=== PATIENT | male | born 1970 | race Caucasian/White ===

== ENCOUNTER → 2017-06-27 | Outpatient (CLI) | payer BC, SELFPAY | PROVIDERS: Family Provider Family Medicine; Visit Provider Family Medicine | DX: R10.13 Epigastric pain (principal) | CPT/HCPCS: 74247 ==

== ENCOUNTER → 2019-11-06 10:46 | Outpatient (CLI) | payer BC, SELFPAY ==
--- NOTE | 2019-11-06 10:55 | XR_ITS ---
PROCEDURE: XR LUMBAR SPINE MIN 4V CLINICAL INDICATION: LUMBAGO W/ LT SCIATICA Low back pain COMPARISON: No exams were available for comparison FINDINGS: Normal alignment. No acute fracture or dislocation evident. There is degenerative disc disease from L1-S1 most prominent at L3-S1. There are facet arthritic changes at L5-S1. A small area of hyperostosis is noted along the dorsal aspect of the mid to lower sacrum. There is minimal lumbar curvature convex right. There is mild sclerosis of the left SI joint superiorly IMPRESSION: Multilevel lumbar spondylosis as described above Dictated by: Nando Yung MD 11/06/2019 11:18 Electronically signed by Nando Yung MD in [place] 11/06/2019 11:18
== END ==
PROVIDERS: PCP Family Medicine; Visit Provider Family Medicine
DX: M54.42 Lumbago with sciatica, left side (principal)
CPT/HCPCS: 72110

== ENCOUNTER → 2019-12-02 07:45 | Outpatient (CLI) | payer BC, SELFPAY ==
--- NOTE | 2019-12-02 07:53 | MR_ITS ---
PROCEDURE: MR LUMBAR SPINE WO CON CLINICAL INDICATION: LUMBAGO WITH SCIATICA, DDD Low back pain, left leg pain tingling and numbness COMPARISON: XR LUMBAR SPINE MIN 4V from 11/06/2019 TECHNIQUE: Standard multiplanar multiecho sequences are performed without contrast. 3-D MIP and myelographic images are also rendered and reviewed FINDINGS: There is normal alignment. The spinal cord ends at the T12-L1 level. L1-L2: There is a small broad-based foraminal disc protrusion resulting in mild to moderate left-sided foraminal narrowing L2-L3: Mild disc desiccation with concentric bulging disc with both right and left broad-based foraminal disc protrusions/disc osteophyte complexes with mild to moderate bilateral foraminal narrowing. There is facet and ligamentum hypertrophy with bilateral lateral recess narrowing. L3-L4: Degenerative disc disease with bulging disc with facet ligamentum hypertrophy with moderate bilateral lateral recess narrowing and moderate bilateral foraminal narrowing. L4-5: Degenerative disc disease. There is bulging disc with a small left paracentral disc herniation with inferior extrusion with resultant severe left lateral recess narrowing. This is impinging upon the left L5 nerve root. There is moderate bilateral foraminal narrowing from the facet and ligamentum hypertrophy and bulging disc. The extruded portion of the disc extends inferiorly for approximately 7 mm. L5-S1: Degenerative disc disease with bulging disc along with facet and ligamentum hypertrophy with mild bilateral foraminal narrowing. Incidental note is made of a small right renal cyst at 11 mm. IMPRESSION: 1. Mild multilevel lumbar spondylosis with degenerative disc disease, bulging discs with lateral recess and foraminal narrowing. Please see above for detailed description at each level. 2. L1-L2: There is a small broad-based foraminal disc protrusion resulting in mild to moderate left-sided foraminal narrowing 3. L2-L3: Mild disc desiccation with concentric bulging disc with both right and left broad-based foraminal disc protrusions/disc osteophyte complexes with mild to moderate bilateral foraminal narrowing. There is facet and ligamentum hypertrophy with bilateral lateral recess narrowing. 4. L3-L4: Degenerative disc disease with bulging disc with facet ligamentum hypertrophy with moderate bilateral lateral recess narrowing and moderate bilateral foraminal narrowing. 5. L4-5: Degenerative disc disease. There is bulging disc with a small left paracentral disc herniation with inferior extrusion with resultant severe left lateral recess narrowing. This is impinging upon the left L5 nerve root. There is moderate bilateral foraminal narrowing from the facet and ligamentum hypertrophy and bulging disc. The extruded portion of the disc extends inferiorly for approximately 7 mm. Dictated by: Nando Yung MD 12/04/2019 08:23 Electronically signed by Nando Yung MD in [place] 12/04/2019 08:23
== END ==
PROVIDERS: PCP Family Medicine; Visit Provider Family Medicine
DX: M54.42 Lumbago with sciatica, left side (principal); M51.36 Other intervertebral disc degeneration, lumbar region; M47.816 Spondylosis without myelopathy or radiculopathy, lumbar region
CPT/HCPCS: 72148; 76376

== ENCOUNTER → 2021-01-16 08:28 | Outpatient (CLI) | payer BC, SELFPAY ==
[2021-01-16 08:51] LABS: Chloride 106 mmol/L (98-107); Potassium 4.6 mmoL/L (3.5-5.1); Sodium 142 mmol/L (136-145)
[2021-01-16 08:54] LABS: Alanine Aminotransferase 21 U/L (12-78); Albumin Level 4.4 g/dl (3.5-5.0); Albumin/Globulin Ratio 1.5 (1.1-1.8); Alkaline Phosphatase 90 U/L (38-126); Anion Gap 11.6 mEq/L (5-15); Aspartate Amino Transferase 22 U/L (17-59); Bilirubin,Total 0.4 mg/dl (0.2-1.3); Blood Urea Nitrogen 18 mg/dl (9-20); Calcium 8.9 mg/dl (8.4-10.2); Carbon Dioxide 29 mmol/L (22.0-30.0); Chol/HDL Ratio 4.5 (1-3.5); Cholesterol 171 mg/dl (140-200); Estimated Glomerular Filt Rate 89 ml/min (>60); GFR (African American) 108 ML/MIN (>60); Globulin 2.9 g/dL (1.3-3.2); Glucose 109 mg/dl (74-100); HDL Cholesterol 38 mg/dl (40-60); Total Protein,Serum 7.3 g/dl (6.3-8.2); Triglycerides 64 mg/dl (30-150); VLDL Cholesterol 13 mg/dL (0-40)
[2021-01-16 09:06] LABS: Direct LDL Cholesterol 97.83 mg/dL (100-129)
[2021-01-16 09:46] LABS: Prostate Specific Ag, Diagnost 0.743 ng/ml (0.0-4.0)
== END ==
PROVIDERS: Visit Provider Physician Assistant
DX: K21.9 Gastro-esophageal reflux disease without esophagitis (principal); Z13.220 Encounter for screening for lipoid disorders; Z12.5 Encounter for screening for malignant neoplasm of prostate
CPT/HCPCS: 36415; 80053; 80061; 84153

== ENCOUNTER → 2021-02-08 14:22 | Outpatient (CLI) | payer BC, SELFPAY | PROVIDERS: Visit Provider Internal Medicine Gastroenterology | DX: Z01.812 Encounter for preprocedural laboratory examination (principal); Z11.52 Encounter for screening for COVID-19; Z12.11 Encounter for screening for malignant neoplasm of colon | CPT/HCPCS: U0003 ==

== ENCOUNTER 2021-02-17 12:18 | Emergency (ER) | payer BC, SELFPAY ==
[2021-02-17 13:10] VITALS: BP 144/80; PULSE 60; RESP 20; TEMP 37.1; O2SAT 96; BMI 33.5
[2021-02-17 13:27] VITALS: BP 144/80; PULSE 60; RESP 20; TEMP 37.1; O2SAT 96
--- NOTE | 2021-02-17 13:30 | HMH.EDUTC ---
[facility] [place] Impression: Exposure to COVID-19 virus Disposition: Home, Self-Care Condition on Discharge: Good Instructions: Guaifenesin, DI for COVID-19 (Suspected or Confirmed ), Preventing the Spread of Coronavirus Discharge Instructions Additional Instructions: *Monitor Temp, Over the counter Motrin or Tylenol as directed/as needed Tylenol every 4 hours and Motrin every 6 hours (as long as your family doctor has told you that you can take it) for fever or pain. and straight to ER if unable to lower temp less than 101.0 after medication given *Warm salt water gargles may help to soothe the throat *Throat Lozenges *Warm fluids like tea with honey may help to soothe the throat *Sleep elevated *Humidifier/Vaporizer Follow up IMMEDIATELY for new or worsening symptoms or no Noticeable improvement over the next 48-72 hours. 911 for difficulty breathing or swallowing You were tested for today for COVID19 your test result should be back in the next 24-48 hours, you may call to the [facility] to see if your test results are back in the next 48 hours [phone] [facility] hours are 9am-9pm You was given a handout with instructions for Self Quarantine and Self isolation for while you wait on test results and what to do if they are positive If you are positive the Health Dept will be contacting you also Make sure to take your Vitamins Vit. C Vit D and Zinc if you can take them Prescriptions: guaiFENesin [Mucinex 600mg tablet] 1 - 2 tab PO Q12HP PRN #20 tab.er.12h PRN Reason: Congestion Transmission Status: Pending to [facility] Referrals: Arvind Caputo MD [Primary Care Provider] - As needed Time of Disposition: 13:33 Medical Decision Making - [place] Inquiry Pt receiving controlled substance: No [place] was queried for this patient: No Vital Signs: 02/17/21 13:10 02/17/21 13:27 Temperature 98.8 F 98.8 F Temperature Source Oral Pulse Rate 60 Pulse Rate [Right Brachial] 60 Respiratory Rate 20 20 Blood Pressure 144/80 H Blood Pressure [Right Arm] 144/80 H Blood Pressure Mean [Right Arm] 101 Blood Pressure Source [Right Arm] Automatic Cuff Blood Pressure Position [Right Arm] Sitting 02 Sat by Pulse Oximetry 96 Oxygen Delivery Method Room Air [facility] [place] - General Stated complaint: covid test Time Seen by Provider: 02/17/21 13:30 Mode of Arrival: Ambulatory Source of Information: Patient Limitations: No Limitations Description of Symptoms (Recalled from Triage Doc. by RN): PATIENT C/O CONGESTION, HEADACHE AND COUGH. RECENTLY EXPOSED TO COVID HEENT Symptoms (Recalled from RN notes): Yes Resp Symptoms (Recalled from RN notes): No Skin Symptoms (Recalled from RN notes): No MS Symptoms (Recalled from RN notes): No Functional Status (Recalled from RN notes): WNL - History of Present Illness Provider Complaint: Patient state that he was recently around his daughter and son in law that have since tested positive for COVID and he has a meeting on Saturday and when he started having cough and nasal congestion he wanted to come in and get tested - Related Data Home Medications Medication Instructions Recorded Confirmed Omeprazole 40 mg PO DAILY 02/07/21 buPROPion HCL [Bupropion Xl] 150 mg PO DAILY 02/07/21 Previous Rx's Medication Instructions Recorded guaiFENesin [Mucinex 600mg tablet] 1 - 2 tab PO Q12HP PRN #20 02/17/21 tab.er.12h Allergies Allergy/AdvReac Type Severity Reaction Status Date / Time No Known Allergies Allergy Verified 08/16/18 09:17 - Worker's Comp Is this a Worker's Comp case?: No [facility] History - Hepatitis A Screen Drug use history?: No High risk sexual behaviors?: No History of sexually transmitted infection?: No Currently employed?: No Childcare worker?: No Do you have indoor plumbing?: Yes Do you have electricity?: Yes Attestation statement:: This patient has been screened for Hepatitis A risk factors. I have reviewed the patient'
--- NOTE | 2021-02-17 19:19 | PC.NURSE ---
PATIENT NOTIFIED OF POSITIVE COVID TEST AT THIS TIME
== END 2021-02-17 13:37 | disposition home or self-care (01) ==
PROVIDERS: Emergency Provider Nurse Practitioner; PCP Family Medicine
DX: U07.1 COVID-19 (principal)
CPT/HCPCS: 99202; G0463; U0003

== ENCOUNTER 2021-03-27 12:09 | Day surgery (SDC) | payer BC, SELFPAY ==
[2021-03-22 14:06] VITALS: BMI 33.0
[2021-03-27 12:49] VITALS: BP 119/59; PULSE 63; RESP 18; TEMP 36.7; O2SAT 97
--- NOTE | 2021-03-27 13:14 | P.PN_ITS ---
[facility] Anesthesia Checklist - Patient Identification Patient Identification: Arm Band - Structural Data Admitted From: Home Planned Operative Procedure/s: Colonoscopy Consent for Planned Operative Procedure(s) Verified: Yes - NPO Status Verified Time NPO: 00:00 - Airway Assessment C-Spine Mobility Assessed: Yes TMJ Mobility Assessed: Yes Dentition: Dentures-good fit - Neurological Assessment Level of Consciousness: Awake Hx Seizures: No Numbness or tingling in extremities: No - Anesthesia Plan Anesthesia Risk discussed: Yes Anesthesia Plan: Verified ASA Class: II Anesthesia Type: MAC [facility] History I have reviewed the patient's past medical history: Yes Medical History: Denies:: Cancer, Diabetes Mellitus Type 1, Diabetes Mellitus Type 2, Internal Pacemaker, MRSA, Seizures *Have you ever received a pneumonia vaccine?: No *Have you received a flu vaccine this season?: No Anesthesia experience/problems:: None Laterality Cases: Bilateral: Arthroscopy Knee Other Surgeries: No: Pacemaker Amputation: No Fractures: No - *Social History Last grade of school completed: Some college Smoking Status: Never smoker Alcohol Intake: current Alcohol Intake Frequency:: holidays/special occasions only Substance Use Type: denies use *Occupational Status:: employed Housing: house Household Members: spouse *Travel in the last 8 weeks: None Family Hx:: Heart Attack, Stroke
[2021-03-27 14:06] VITALS: O2SAT 97
--- NOTE | 2021-03-27 14:07 | P.PCN_ITS ---
[facility] Procedure Note Procedure Note:: Colonoscopy Procedure Report: Colonoscopy with cold snare polypectomy Endoscopist: Rebel Palmer II, MD Referring physician: Arvind Caputo MD/JAVIER Johnson Date of Procedure: March 27, 2021 Equipment: Olympus 190 variable stiffness pediatric colonoscope Sedation: MAC sedation Indication: Mr. Sullivan is a 50-year-old gentleman who is here for initial screening colonoscopy. He reports no abdominal pain, weight loss, change in his bowel habits or rectal bleeding. He reports no family history of colon cancer. Procedure: Prior to the procedure, a history and physical exam was performed, and patient's medications and allergies were reviewed. The risks, benefits and alternatives of the sedation and procedure were discussed with the patient. All questions were answered and informed consent was obtained. The patient was brought to the procedure room. Patient identification and proposed procedure were verified by the physician and the nurse. The patient was placed in a left lateral decubitus position and the scope was passed under direct vision. Throughout the procedure, the patient's blood pressure, pulse, and oxygen saturations were monitored continuously. The colonoscopy was accomplished without difficulty. The patient tolerated the procedure well. Findings: On digital rectal examination there was normal rectal tone. There were no external hemorrhoids. The prostate was 2+, smooth, soft, symmetric without nodules. The colonoscope was introduced through the anal canal to the rectum and advanced to the cecum. The ileocecal valve and appendiceal orifice were identified. The scope was advanced a short distance into the ileum which appeared grossly normal. The scope was then withdrawn into the colon. The cecum, ascending and transverse colon and mucosa were grossly normal. There were 3 colon polyps (descending x1 (3 mm), sigmoid x1 (5 mm) and rectum x1 (4 mm)) which were all removed via cold snare polypectomy. There were scattered diverticuli throughout the descending and sigmoid colon (LEFT colon). The rectum itself was normal. Upon retroflexion within the rectum there were grade 1-2 internal hemorrhoids. The preparation was excellent throughout with [place] Preparation Score of 9. The cecal time was 12 minutes. Impression: 1. Diminutive colonic polyps x3 2. Mild left-sided diverticulosis 3. Grade 1-2 internal hemorrhoids Plan: I will follow up the polyp pathology and recommend repeat colonoscopy again in 7-10 years based upon the polyp histology. I would encourage bulking fiber supplementation on a long-term daily maintenance basis.
[2021-03-27 14:09] VITALS: BP 103/59; PULSE 57; RESP 18; TEMP 36.2; O2SAT 96
[2021-03-27 14:19] VITALS: BP 112/62; PULSE 55; RESP 18; O2SAT 97
[2021-03-27 14:29] VITALS: BP 108/55; PULSE 53; RESP 18; O2SAT 97
[2021-03-27 14:44] VITALS: BP 117/63; PULSE 53; RESP 18; O2SAT 97
== END 2021-03-27 14:52 | disposition home or self-care (01) ==
LOC: OUTP 12:12
PROVIDERS: PCP Family Medicine; Visit Provider Internal Medicine Gastroenterology
PROC: 0DJD8ZZ Inspection of Lower Intestinal Tract, Via Natural or Artificial Opening Endoscopic (ICD-10-PCS; CPT 45378; principal; 2021-03-27 13:30)
DX: Z12.11 Encounter for screening for malignant neoplasm of colon (principal); K63.5 Polyp of colon; K57.32 Diverticulitis of large intestine without perforation or abscess without bleeding; K64.0 First degree hemorrhoids; Z82.3 Family history of stroke; Z79.899 Other long term (current) drug therapy
CPT/HCPCS: 45385; J2704

== ENCOUNTER → 2021-07-05 14:17 | Outpatient (CLI) | payer BC, SELFPAY ==
[2021-07-05 14:37] LABS: Adenovirus,PCR Not Detected (NotDetected); Bordetella Pertussis Not Detected (NotDetected); Chlamydophila Pneumoniae, PCR Not Detected (NotDetected); Coronavirus 229E Not Detected (NotDetected); Coronavirus NL63 Not Detected (NotDetected); Coronavirus OC43 Not Detected (NotDetected); Coronovirus HKU1,PCR Not Detected (NotDetected); Human Metapneumovirus Not Detected (NotDetected); Influenza A, PCR Not Detected (NotDetected); Influenza AH1, 2009 Not Detected (NotDetected); Influenza AH1, PCR Not Detected (NotDetected); Influenza AH3,PCR Not Detected (NotDetected); Influenza B, PCR Not Detected (NotDetected); Mycoplasma Pneumoniae, PCR Not Detected (NotDetected); Parainfluenza 1, PCR Not Detected (NotDetected); Parainfluenza 2, PCR Not Detected (NotDetected); Parainfluenza 3, PCR Not Detected (NotDetected); Parainfluenza 4, PCR Not Detected (NotDetected); Respiratory Syncytial Virus Not Detected (NotDetected); Rhinovirus/Enterovirus Not Detected (NotDetected)
[2021-07-05 14:50] LABS: Basophils # 0.2 K/mm3 (0-0.2); Basophils % 1.6 % (0.1-2.0); Eosinophils # 0.3 K/mm3 (0.0-0.4); Eosinophils % 2.7 % (0.1-12.0); Hematocrit 45.8 % (42.0-52.0); Hemoglobin 14.6 g/dL (14.1-18.0); Lymphocytes % 9.7 % (10-50); Mean Corpuscular HGB Conc 31.9 g/dL (31.8-35.4); Mean Corpuscular Hemoglobin 30.5 pg (27.0-31.2); Mean Corpuscular Volume 95.7 fl (80-94); Mean Platelet Volume 7.5 fl (7.4-10.4); Monocytes # 0.6 K/mm3 (0.1-1.0); Monocytes % 6.2 % (1.7-9.3); Neutrophils % 79.8 % (37.0-80.0); Platelet Count 317 K/mm3 (142-424); Red Blood Count 4.78 M/mm3 (4.60-6.20); Red Cell Distribution Width 13.5 % (11.5-17.5)
[2021-07-05 18:54] LABS: Coronavirus 19, PCR Detected (NotDetected)
== END ==
PROVIDERS: PCP Physician Assistant; Visit Provider Physician Assistant
DX: U07.1 COVID-19 (principal)
CPT/HCPCS: 85025; 87581; 87632; 87798; C9803; U0003; U0005

== ENCOUNTER → 2022-06-18 16:40 | Outpatient (CLI) | payer BC, SELFPAY | PROVIDERS: PCP Otolaryngology; Visit Provider Otolaryngology | DX: D49.2 Neoplasm of unspecified behavior of bone, soft tissue, and skin (principal) | CPT/HCPCS: 88305 ==

== ENCOUNTER → 2022-07-25 15:01 | Outpatient (CLI) | payer BC, SELFPAY ==
[2022-07-25 15:12] LABS: MANUAL DIFFERENTIAL MANUAL DIFFERENTIAL (MANUAL DIFF)
--- NOTE | 2022-07-25 15:20 | ECG_ITS ---
APPROVED REPORT Exam: Resting ECG HR:75 bpm ECG Measurements Heart Rate 75 AXES GA 140 P 40 QRSd 102 QRS 13 QT 352 T 31 QTc 380 Conclusion SINUS RHYTHM NORMAL ECG UNCONFIRMED REPORT Electronically signed by : Roque Moreland MD 07/25/2022 21:30:11
[2022-07-25 16:32] LABS: Basophils # 0.1 K/mm3 (0-0.2); Basophils % 0.8 % (0.1-2.0); Eosinophils # 0.3 K/mm3 (0.0-0.4); Eosinophils % 2.2 % (0.1-12.0); Hematocrit 46.5 % (42.0-52.0); Hemoglobin 14.8 g/dL (14.1-18.0); Lymphocytes # 2.2 K/mm3 (0.7-4.5); Lymphocytes % 17.4 % (10-50); Mean Corpuscular HGB Conc 31.8 g/dL (31.8-35.4); Mean Corpuscular Hemoglobin 30.3 pg (27.0-31.2); Mean Corpuscular Volume 95.2 fl (80-94); Mean Platelet Volume 8.1 fl (7.4-10.4); Monocytes # 0.8 K/mm3 (0.1-1.0); Monocytes % 6.1 % (1.7-9.3); Neutrophils # 9.4 K/mm3 (1.8-7.8); Neutrophils % 73.4 % (37.0-80.0); Platelet Count 378 K/mm3 (142-424); Red Blood Count 4.89 M/mm3 (4.60-6.20); Red Cell Distribution Width 13.8 % (11.5-17.5); White Blood Count 12.7 K/mm3 (4.8-10.8)
[2022-07-25 17:44] LABS: Alanine Aminotransferase 30 U/L (12-78); Albumin Level 4.7 g/dl (3.5-5.0); Albumin/Globulin Ratio 1.7 (1.1-1.8); Alkaline Phosphatase 95 U/L (38-126); Anion Gap 9.9 mEq/L (5-15); Aspartate Amino Transferase 29 U/L (17-59); Bilirubin,Total 0.6 mg/dl (0.2-1.3); Blood Urea Nitrogen 15 mg/dl (9-20); Calcium 8.9 mg/dl (8.4-10.2); Carbon Dioxide 28 mmol/L (22.0-30.0); Chloride 103 mmol/L (98-107); Estimated Glomerular Filt Rate 102 ml/min (>60); GFR (African American) 123 ML/MIN (>60); Globulin 2.8 g/dL (1.3-3.2); Glucose 89 mg/dl (74-100); Potassium 4.9 mmoL/L (3.5-5.1); Sodium 136 mmol/L (136-145); Total Protein,Serum 7.5 g/dl (6.3-8.2)
[2022-07-25 17:57] LABS: Eosinophils % 1 % (0-3); Lymphocytes % 22 % (10-50); Monocytes % 2 % (2-9); Neutrophils % 75 % (42-76); Platelet Estimate Normal; RBC Morphology Normal; Total Cells Counted 100
== END ==
PROVIDERS: PCP Family Medicine; Visit Provider Otolaryngology
DX: Z01.818 Encounter for other preprocedural examination (principal); D49.2 Neoplasm of unspecified behavior of bone, soft tissue, and skin
CPT/HCPCS: 36415; 80053; 85007; 85014; 85018; 85048; 85049; 93005

== ENCOUNTER 2022-07-30 06:23 | Day surgery (SDC) | payer BC, SELFPAY ==
[2022-07-26 14:16] VITALS: BMI 39.9
[2022-07-30 06:49] VITALS: BP 130/95; PULSE 82; RESP 18; TEMP 36.1; O2SAT 97
--- NOTE | 2022-07-30 07:51 | P.PN_ITS ---
[facility] Disclaimer: The information contained in this section may have been updated after the patient was seen, as this information can be updated by other users. Medical History Allergies Anxiety and depression Hemorrhoid History of COVID-19 History of gastroesophageal reflux (GERD) Neoplasm of ear Sinus headache Surgical History History of back surgery History of knee surgery Family History Other Heart attack Social History Smoking Status: Former smoker second hand exposure: No alcohol intake: current substance use type: denies use current occupational status: employed Travel in the last 8 weeks: Inside the [place] household members: spouse housing: house current occupation: [employer] current occupational exposures/hazards: No caffeine: Yes [facility] Anesthesia Checklist Patient Identification Patient Identification: Arm Band Structural Data Admitted From: Home Planned Operative Procedure/s: 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
[2022-07-30 08:55] VITALS: BP 135/84; PULSE 63; RESP 16; TEMP 36.1; O2SAT 93
--- NOTE | 2022-07-30 08:56 | EXP.OP.NOTE ---
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 The left ear was injected with 2% lidocaine with epinephrine solution in the area of the previous biopsy he was just on the posterior aspect of the superior pinna. There is then prepared and draped in you sterile fashion. An ellipse was carried out around the prior biopsy site that measured 1.2 cm x 6 mm. This area was then removed using sharp dissection. The anterior border of the lesion was marked for the pathologist. Preliminary report was sun damaged skin but no evidence of persistent carcinoma. The incision was then closed with 3 interrupted 5-0 fast-absorbing gut sutures. Steri-Strips were applied. Bandage was applied. Patient was awakened in the operating room taken recovery good condition Condition: stable Disposition: PACU Complications:: None
[2022-07-30 09:05] VITALS: BP 139/80; PULSE 64; RESP 16; TEMP 36.1; O2SAT 94
[2022-07-30 09:15] VITALS: BP 130/81; PULSE 69; RESP 18; TEMP 36.1; O2SAT 95
[2022-07-30 09:30] VITALS: BP 137/82; PULSE 65; RESP 18; TEMP 36.1; O2SAT 95
[2022-07-30 09:45] VITALS: BP 141/95; PULSE 67; RESP 18; TEMP 36.1; O2SAT 94
== END 2022-07-30 09:45 | disposition home or self-care (01) ==
PROVIDERS: PCP Family Medicine; Visit Provider Otolaryngology
PROC: (CPT 11440; principal; 2022-07-30 08:00)
DX: Z85.828 Personal history of other malignant neoplasm of skin (principal); L98.9 Disorder of the skin and subcutaneous tissue, unspecified; Z79.899 Other long term (current) drug therapy
CPT/HCPCS: 11440; 88305; 88331; 96372; J2405

== ENCOUNTER 2024-01-28 21:34 | Emergency (ER) | payer BC, SELFPAY ==
[2024-01-28 21:35] VITALS: BP 145/74; PULSE 74; RESP 20; TEMP 36.8; O2SAT 99; BMI 36.2
--- NOTE | 2024-01-28 22:12 | ED_ITS ---
<Statement entered by Kim Bui MD - 01/28/24 23:09> I was consulted by the ROSE, and we discussed the complexity of problems being addressed. I approved the treatment and management plan for this patient's care in the emergency department, thus performing a substantial portion of the medical decision making. Kim Bui MD Discharge Plan Disposition Patient Disposition: Home, Self-Care Prescriptions Prescriptions: No Action bupropion HCl 300 mg tablet extended release 24 hr 300 mg PO DAILY omeprazole 40 mg capsule,delayed release(DR/EC) 40 mg PO DAILY Referrals Follow up/Referrals: Arvind Caputo MD [Primary Care Provider] - See instructions Costa Cooper DO [Staff Physician] - See instructions Activity Restrictions/Add. Instructions Additional Instructions/Restrictions: Please follow-up with your primary care provider. Please return to the emergency department if you develop any new or worsening symptoms or become concerned for your health. Recommend following up with Dr. Cooper for further assessment of your chronic left knee deformity. Clinical Impressions Clinical Impression: Acute knee pain, Neck pain, Valgus deformity, not elsewhere classified, left knee Discharge ED Provider: Rogers Palma General Adult HPI <CLAUDIA Colvin - Last Filed: 01/28/24 23:05> General Chief complaint: Extremity Injury, Lower Stated complaint: AO01/26 fall LT leg inj Time Seen by Provider: 01/28/24 22:12 Mode of Arrival: Ambulatory Source of Information: Patient Limitations: No Limitations Description of Symptoms (Recalled from ER Triage Doc. by RN): Pt. presented to the ED with c/o left knee injury. Pt. tripeed last night and landed on concrete tight on knee cap. left knee cap swollen. Pt. c/o pain when walking and bending. History of Present Illness HPI narrative: Patient presents for evaluation after a fall. Patient tripped over a piece of furniture in the night landing primarily on his left knee and also wrenching his neck. Patient reports that he has difficulty extending fully his left knee but not his right. He has pain directly over the patella on the left. He also reports that he is very tender at the top part of his midline C-spine. He denies loss of consciousness fever chills hemoptysis hematochezia melena nausea vomit diarrhea. Related Data Home Medications Medication Instructions Recorded Confirmed bupropion HCl 300 mg 24 hr tablet, 300 mg PO DAILY 09/03/22 09/03/22 extended release omeprazole 40 mg capsule,delayed 40 mg PO DAILY 09/03/22 09/03/22 release Allergies Allergy/AdvReac Type Severity Reaction Status Date / Time No Known Allergies Allergy Verified 09/03/22 15:13 [facility] <CLAUDIA Colvin - Last Filed: 01/28/24 23:05> [facility] Disclaimer: The information contained in this section may have been updated after the patient was seen, as this information can be updated by other users. 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 Biopsy was recommended. Should further resection be necessary, we will let him know. Sinus headache Surgical History History of back surgery History of knee surgery Family History Other Heart attack Social History Smoking Status: Former smoker second hand exposure: No alcohol intake: current alcohol intake frequency: holidays/special occasions only substance use type: denies use current occupational status: employed Travel in the last 8 weeks: Inside the [place] household members: spouse housing: house current occupation: [employer] current occupational exposures/hazards: No caffeine: Yes <CLAUDIA Colvin - Last Filed: 01/28/24 23:05> ROS Obtained: Yes Systems reviewed as appropriate & no additional complaints except as documented Physical Exam <CLAUDIA Colvin - Last Filed: 01/28/24 23:05> General General appearance: alert and in no apparent distress Head Head exam: atraumatic and normal inspection Eye Eye exam: Present normal appearance and EOMI ENT ENT exam: Present normal exam, normal oropharynx and mucous membranes moist Neck Neck exam: Present normal inspection, full ROM and tenderness Chest Chest inspection: Present normal inspection and symmetric chest wall rise Respiratory Respiratory exam: Present normal lung sounds bilaterally; Absent accessory muscle use Cardiovascular Cardiovascular exam: Present regular rate, normal rhythm and normal heart sounds Abdominal Exam Abdominal exam: Present soft and normal bowel sounds; Absent tenderness Extremities Exam Extremities exam: Present tenderness and joint swelling; Absent normal inspection or full ROM Back Exam Back exam: Present normal inspection, full ROM and tenderness Neurological Exam Neurological exam: Present alert, oriented X3 and CN II-XII intact Medical Decision Making <CLAUDIA Colvin - Last Filed: 01/28/24 23:05> Medical Records Medical records reviewed: Yes I reviewed the patient's medical records. [place] Inquiry Pt receiving controlled substance: No Vital Signs: 01/28/24 21:35 01/28/24 23:33 Temperature 98.3 F Temperature Source Oral Pulse Rate 72 Pulse Rate [Right] 74 Respiratory Rate 20 18 Blood Pressure 119/99 H Blood Pressure [Right Radial Artery] 145/74 H Blood Pressure Mean [Right Radial Artery] 97 Blood Pressure Source Automatic Cuff Blood Pressure Source [Right Radial Artery] Automatic Cuff Blood Pressure Position Supine Blood Pressure Position [Right Radial Artery] Sitting 02 Sat by Pulse Oximetry 99 97 Oxygen Delivery Method Room Air Room Air Lab Data Lab results reviewed: Yes I reviewed the patient's lab results. Orders (Tests/Meds): ED MEDICATIONS Discontinued Medications Generic Name Dose Route Start Last Admin Trade Name Amira PRN Reason Stop Dose Admin Acetaminophen 1,000 mg 01/28/24 22:22 01/28/24 22:46 Acetaminophen 500mg Tab PO 01/28/24 22:23 Not Given ONCE ONE Ibuprofen 800 mg 01/28/24 22:22 01/28/24 22:33 Ibuprofen 400 Mg Tablet PO 01/28/24 22:23 800 mg ONCE ONE Administration ORDERS Category Date Time Status CT cervical spine wo con Stat Cat Scan 01/28/24 22:[address] head/brain wo con Stat Cat Scan 01/28/24 22:23 Completed Femur XR left 2 views [XR femur LT 2V] Stat Exams 01/28/24 22:22 Completed Femur XR left 2 views [XR femur LT 2V] Stat Exams 01/28/24 22:38 Taken Femur XR right 2 views [XR femur RT 2V] Stat Exams 01/28/24 22:38 Completed Knee XR left 4 views [XR knee LT 4V] Stat Exams 01/28/24 22:38 Completed Knee XR right 3 views [XR knee RT 3V] Stat Exams 01/28/24 22:38 Completed Tibia/fibula XR left 2 views [XR tibia fibula LT 2V] Exams 01/28/24 22:22 Completed Stat Tibia/fibula XR right 2 views [XR tibia fibula RT 2V] Exams 01/28/24 22:22 Completed Stat Medical Decision Narrative: In summary patient is a 53-year-old male who presents to the emergency department for evaluation of a fall. Patient is patient is hemodynamically stable upon arrival, afebrile. Physical exam is remarkable for tenderness to palpation in the midline C-spine around C2-C3 but no bony deformities ecchymosis abrasions contusions noted. Patient does have full range of motion but it is tender. The palpation only in that 1 spot of the cervical spine. Patient has tenderness to palpation over the left patella with diminished extension due to pain and swelling. Patient is neurovascular intact distally. Patient has painful range of motion but is able to fully extend on the right with no patellar tenderness. He is neurovascular tact distally. Differential diagnosis includes strain versus fracture versus contusion etc. Initial workup will be conducted with CT scan of the head and neck plain films of the bilateral knees and associated above and below. Initial interventions include Tylenol Motrin. Initial workup is ordered and pending at the time of handoff to Dr. Palma at 2300 hrs. <Kim Bui MD - Last Filed: 01/28/24 23:10> Vital Signs: 01/28/24 21:35 01/28/24 23:33 Temperature 98.3 F Temperature Source Oral Pulse Rate 72 Pulse Rate [Right] 74 Respiratory Rate 20 18 Blood Pressure 119/99 H Blood Pressure [Right Radial Artery] 145/74 H Blood Pressure Mean [Right Radial Artery] 97 Blood Pressure Source Automatic Cuff Blood Pressure Source [Right Radial Artery] Automatic Cuff Blood Pressure Position Supine Blood Pressure Position [Right Radial Artery] Sitting 02 Sat by Pulse Oximetry 99 97 Oxygen Delivery Method Room Air Room Air Orders (Tests/Meds): ED MEDICATIONS Discontinued Medications Generic Name Dose Route Start Last Admin Trade Name Freq PRN Reason Stop Dose Admin Acetaminophen 1,000 mg 01/28/24 22:22 01/28/24 22:46 Acetaminophen 500mg Tab PO 01/28/24 22:23 Not Given ONCE ONE Ibuprofen 800 mg 01/28/24 22:22 01/28/24 22:33 Ibuprofen 400 Mg Tablet PO 01/28/24 22:23 800 mg ONCE ONE Administration ORDERS Category Date Time Status CT cervical spine wo con Stat Cat Scan 01/28/24 22:[address] head/brain wo con Stat Cat Scan 01/28/24 22:23 Completed Femur XR left 2 views [XR femur LT 2V] Stat Exams 01/28/24 22:22 Completed Femur XR left 2 views [XR femur LT 2V] Stat Exams 01/28/24 22:38 Taken Femur XR right 2 views [XR femur RT 2V] Stat Exams 01/28/24 22:38 Completed Knee XR left 4 views [XR knee LT 4V] Stat Exams 01/28/24 22:38 Completed Knee XR right 3 views [XR knee RT 3V] Stat Exams 01/28/24 22:38 Completed Tibia/fibula XR left 2 views [XR tibia fibula LT 2V] Exams 01/28/24 22:22 Completed Stat Tibia/fibula XR right 2 views [XR tibia fibula RT 2V] Exams 01/28/24 22:22 Completed Stat Medical Decision Narrative: In summary patient is a 53-year-old male who presents to the emergency department for evaluation of a fall. Patient is patient is hemodynamically stable upon arrival, afebrile. Physical exam is remarkable for tenderness to palpation in the midline C-spine around C2-C3 but no bony deformities ecchymosis abrasions contusions noted. Patient does have full painless range of motion but it is tender. The palpation only in that 1 spot of the cervical spine. Patient has tenderness to palpation over the left patella with diminished extension due to pain and swelling. Patient is neurovascular intact distally. Patient has painful range of motion but is able to fully extend on the right with no patellar tenderness. He is neurovascular tact distally. Differential diagnosis includes strain versus fracture versus contusion etc. Initial workup will be conducted with CT scan of the head and neck plain films of the bilateral knees and associated above and below. Initial interventions include Tylenol Motrin. Initial workup is ordered and pending at the time of handoff to Dr. Palma at 2300 hrs. <Rogers Palma MD - Last Filed: 01/29/24 00:16> Vital Signs: 01/28/24 21:35 01/28/24 23:33 Temperature 98.3 F Temperature Source Oral Pulse Rate 72 Pulse Rate [Right] 74 Respiratory Rate 20 18 Blood Pressure 119/99 H Blood Pressure [Right Radial Artery] 145/74 H Blood Pressure Mean [Right Radial Artery] 97 Blood Pressure Source Automatic Cuff Blood Pressure Source [Right Radial Artery] Automatic Cuff Blood Pressure Position Supine Blood Pressure Position [Right Radial Artery] Sitting 02 Sat by Pulse Oximetry 99 97 Oxygen Delivery Method Room Air Room Air Orders (Tests/Meds): ED MEDICATIONS Discontinued Medications Generic Name Dose Route Start Last Admin Trade Name Fremayi PRN Reason Stop Dose Admin Acetaminophen 1,000 mg 01/28/24 22:22 01/28/24 22:46 Acetaminophen 500mg Tab PO 01/28/24 22:23 Not Given ONCE ONE Ibuprofen 800 mg 01/28/24 22:22 01/28/24 22:33 Ibuprofen 400 Mg Tablet PO 01/28/24 22:23 800 mg ONCE ONE Administration ORDERS Category Date Time Status CT cervical spine wo con Stat Cat Scan 01/28/24 22:[address] head/brain wo con Stat Cat Scan 01/28/24 22:23 Completed Femur XR left 2 views [XR femur LT 2V] Stat Exams 01/28/24 22:22 Completed Femur XR left 2 views [XR femur LT 2V] Stat Exams 01/28/24 22:38 Taken Femur XR right 2 views [XR femur RT 2V] Stat Exams 01/28/24 22:38 Completed Knee XR left 4 views [XR knee LT 4V] Stat Exams 01/28/24 22:38 Completed Knee XR right 3 views [XR knee RT 3V] Stat Exams 01/28/24 22:38 Completed Tibia/fibula XR left 2 views [XR tibia fibula LT 2V] Exams 01/28/24 22:22 Completed Stat Tibia/fibula XR right 2 views [XR tibia fibula RT 2V] Exams 01/28/24 22:22 Completed Stat Medical Decision Narrative: In summary patient is a 53-year-old male who presents to the emergency department for evaluation of a fall. Patient is patient is hemodynamically stable upon arrival, afebrile. Physical exam is remarkable for tenderness to palpation in the midline C-spine around C2-C3 but no bony deformities ecchymosis abrasions contusions noted. Patient does have full painless range of motion but it is tender. The palpation only in that 1 spot of the cervical spine. Patient has tenderness to palpation over the left patella with diminished extension due to pain and swelling. Patient is neurovascular intact distally. Patient has painful range of motion but is able to fully extend on the right with no patellar tenderness. He is neurovascular tact distally. Differential diagnosis includes strain versus fracture versus contusion etc. Initial workup will be conducted with CT scan of the head and neck plain films of the bilateral knees and associated above and below. Initial interventions include Tylenol Motrin. Initial workup is ordered and pending at the time of handoff to Dr. Palma at 2300 hrs. Minreva DALAL: I assumed care of the patient at the time of handoff from the prior provider. On reassessment patient reports symptomatic improvement. CT imaging interpreted by me and shows some arthritis of the neck, but no acute fracture or malalignme nt. Radiographs of the left lower extremity show no acute fracture or dislocation, does show some soft tissue swelling. I had a nice discussion with patient regarding his presentation. He asked me about a chronic issue with his left knee. He reports that he has had some malalignment of the left knee for the last few months. No recent change. On exam he has a valgus deformity of the left knee with some laxity of the medial collateral ligament. I recommended he follow-up with Dr. Cooper for further assessment. Patient was discharged in stable condition with return precautions. I was consulted by the ROSE, and we discussed the complexity of the problems being addressed. I approved the treatment and management plan for this patient?s care in the Emergency Department, thus performing a substantive portion of the medical decision making. Rogers Palma MD Critical Care <CLAUDIA Colvin - Last Filed: 01/28/24 23:05> Critical Care Time Critical Care Time: No
--- NOTE | 2024-01-28 22:22 | XR_ITS ---
PROCEDURE INFORMATION: Exam: XR Right Tibia and Fibula Exam date and time: 01/28/2024 11:10 PM Age: 53 years old Clinical indication: Pain; Lower leg; Right; Additional info: Fall TECHNIQUE: Imaging protocol: Radiologic exam of the right tibia and fibula. Views: 2 views. COMPARISON: CR XR TIBIA FIBULA RT 2V 01/28/2024 11:10 PM FINDINGS: Bones/joints: No acute fracture or malalignment. Chronic posttraumatic changes about the medial and lateral ankle. Mild tricompartmental, tibiotalar and dorsal midfoot degenerative changes. Patellar and calcaneal enthesopathy. Soft tissues: Mild diffuse leg soft tissue swelling. IMPRESSION: 1. No acute osseous findings. 2. Mild diffuse leg soft tissue swelling.
--- NOTE | 2024-01-28 22:22 | XR_ITS ---
PROCEDURE INFORMATION: Exam: XR Left Tibia and Fibula Exam date and time: 01/28/2024 11:10 PM Age: 53 years old Clinical indication: Pain; Lower leg; Left; Additional info: Fall TECHNIQUE: Imaging protocol: Radiologic exam of the left tibia and fibula. Views: 2 views. COMPARISON: CR XR KNEE LT 4V 01/28/2024 11:10 PM FINDINGS: Bones/joints: No acute fracture or malalignment. Minimal chronic posttraumatic changes about the medial ankle. Tricompartmental osteoarthritis. Mild tibiotalar and dorsal midfoot degenerative changes. Synovial osteochondromatosis. Patellar and calcaneal enthesopathy. Moderate joint effusion. Soft tissues: Minimal diffuse left leg soft tissue swelling. IMPRESSION: 1. No acute osseous findings. 2. Minimal diffuse left leg soft tissue swelling.
--- NOTE | 2024-01-28 22:22 | XR_ITS ---
PROCEDURE INFORMATION: Exam: XR Left Femur Exam date and time: 01/28/2024 11:10 PM Age: 53 years old Clinical indication: Pain; Thigh; Left; Additional info: Fall TECHNIQUE: Imaging protocol: Radiologic exam of the left femur. Views: 2 views. COMPARISON: CR XR KNEE LT 4V 01/28/2024 11:10 PM FINDINGS: Bones/joints: No acute fracture or malalignment. Tricompartmental osteoarthritis. Left hip degenerative changes. Synovial osteochondromatosis. Patellar and greater trochanteric enthesopathy. Moderate joint effusion. Soft tissues: Unremarkable. IMPRESSION: No acute osseous findings.
--- NOTE | 2024-01-28 22:23 | CT_ITS ---
PROCEDURE INFORMATION: Exam: CT Head Without Contrast Exam date and time: 01/28/2024 11:12 PM Age: 53 years old Clinical indication: Injury or trauma; Fall; Additional info: Trauma, critical injury suspected TECHNIQUE: Imaging protocol: Computed tomography of the head without contrast. Radiation optimization: All CT scans at this facility use at least one of these dose optimization techniques: automated exposure control; mA and/or kV adjustment per patient size (includes targeted exams where dose is matched to clinical indication); or iterative reconstruction. COMPARISON: No relevant prior studies available. FINDINGS: Brain: Normal. No hemorrhage. Unremarkable white matter. No mass effect. Cerebral ventricles: No ventriculomegaly. Paranasal sinuses: Visualized sinuses are unremarkable. No fluid levels. Mastoid air cells: Visualized mastoid air cells are well aerated. Bones: Unremarkable. No acute fracture. Soft tissues: Unremarkable. IMPRESSION: No acute intracranial abnormality.
--- NOTE | 2024-01-28 22:23 | CT_ITS ---
PROCEDURE INFORMATION: Exam: CT Cervical Spine Without Contrast Exam date and time: 01/28/2024 11:14 PM Age: 53 years old Clinical indication: Injury or trauma; Fall; Additional info: Trauma, critical injury suspected TECHNIQUE: Imaging protocol: Computed tomography of the cervical spine without contrast. Radiation optimization: All CT scans at this facility use at least one of these dose optimization techniques: automated exposure control; mA and/or kV adjustment per patient size (includes targeted exams where dose is matched to clinical indication); or iterative reconstruction. COMPARISON: CT HEAD/BRAIN WO CON 01/28/2024 11:12 PM FINDINGS: Bones: There are moderate degenerative changes of the spine. Endplate osteophytes and facet arthropathy. Multilevel disc space narrowing. 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 This contributes to moderate canal stenosis at this level. No fracture or dislocation. Lungs: Lung apices are normal. Soft tissues: Unremarkable. IMPRESSION: No acute findings. DJD.
[2024-01-28] MEDS: IBUPROFEN 400 MG TABLET 800 MG PO (22:33)
--- NOTE | 2024-01-28 22:38 | XR_ITS ---
PROCEDURE INFORMATION: Exam: XR Left Knee Exam date and time: 01/28/2024 11:10 PM Age: 53 years old Clinical indication: Injury or trauma; Fall TECHNIQUE: Imaging protocol: Radiologic exam of the left knee. Views: 4 or more views. COMPARISON: CR XR KNEE LT 4V 01/28/2024 11:10 PM FINDINGS: Bones/joints: No acute fracture or malalignment. 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 Patellar enthesopathy. Moderate joint effusion. Soft tissues: Mild anterior knee soft tissue swelling. IMPRESSION: 1. No acute osseous findings. 2. Mild anterior knee soft tissue swelling.
--- NOTE | 2024-01-28 22:38 | XR_ITS ---
PROCEDURE INFORMATION: Exam: XR Right Femur Exam date and time: 01/28/2024 11:10 PM Age: 53 years old Clinical indication: Injury or trauma; Fall TECHNIQUE: Imaging protocol: Radiologic exam of the right femur. Views: 2 views. COMPARISON: CR XR FEMUR RT 2V 01/28/2024 11:10 PM FINDINGS: Bones/joints: No acute fracture or malalignment. Right hip osteoarthritis. Tricompartment osteoarthritis. Patellar and anterior inferior iliac spine enthesopathy. Corticated fragmentation superior to the patella may represent sequela from remote injury or chronic contraceptive tendinopathy. No joint effusion. Soft tissues: Unremarkable. IMPRESSION: No acute osseous findings.
--- NOTE | 2024-01-28 22:38 | XR_ITS ---
PROCEDURE INFORMATION: Exam: XR Right Knee Exam date and time: 01/28/2024 11:10 PM Age: 53 years old Clinical indication: Pain; Knee; Right; Additional info: Fall TECHNIQUE: Imaging protocol: Radiologic exam of the right knee. Views: 3 views. COMPARISON: CR XR FEMUR RT 2V 01/28/2024 11:10 PM FINDINGS: Bones/joints: No acute fracture or malalignment. Tricompartment osteoarthritis. Patellar enthesopathy. Corticated fragmentation superior to the patella may represent sequela from remote injury or chronic contraceptive tendinopathy. No joint effusion. Soft tissues: Mild anterior knee soft tissue swelling. IMPRESSION: 1. No acute osseous findings. 2. Mild anterior knee soft tissue swelling.
[2024-01-28 23:33] VITALS: BP 119/99; PULSE 72; RESP 18; O2SAT 97
[2024-01-29 00:15] VITALS: BP 116/65; PULSE 70; RESP 18; TEMP 36.8; O2SAT 98
[2024-01-29 00:19] VITALS: BP 116/65; PULSE 65; RESP 18; TEMP 36.6; O2SAT 95
== END 2024-01-29 00:17 | disposition home or self-care (01) ==
PROVIDERS: Emergency Provider Emergency Medicine; PCP Family Medicine
DX: M25.562 Pain in left knee (principal); M54.2 Cervicalgia; M21.062 Valgus deformity, not elsewhere classified, left knee; W01.190A Fall on same level from slipping, tripping and stumbling with subsequent striking against furniture, initial encounter
CPT/HCPCS: 70450; 72125; 73552; 73562; 73564; 73590; 99285

== ENCOUNTER 2024-02-13 07:46 | Outpatient (CLI) | payer BC, SELFPAY ==
--- NOTE | 2024-02-13 08:19 | CT_ITS ---
FINAL REPORT CLINICAL HISTORY: SCREENING FORMER SMOKER PT QUIT 6 YEARS AGO, 2PPD X32 YEARS WHEN SMOKING FINDINGS: CTDI vol (mGy): 2.90 DLP: 107.[address] images of the chest were obtained using the low-dose protocol for screening. There are calcified mediastinal and right hilar lymph nodes. There is no axillary mass or adenopathy. No axillary mass or adenopathy is identified. On the lung window images, a calcified granuloma is seen in the left upper lobe. There are several, less than 5 mm nodules in the lower lobes. 2 right lower lobe nodules are seen on image 52 measuring 2 mm. There is no dominant mass or suspicious nodule. IMPRESSION: Bilateral pulmonary nodules measuring less than 5 mm. Lung RADS category 2. Recommend 12 month followup low-dose CT for further evaluation. Reviewed, Interpreted and Dictated by Akshat Arvizu III, MD Transcribed by Annabelle Turner Authenticated and [facility]
== END 2024-02-13 23:59 | disposition home or self-care (01) ==
LOC: RAD 07:47
PROVIDERS: PCP Family Medicine; Visit Provider Family Medicine
DX: Z12.2 Encounter for screening for malignant neoplasm of respiratory organs (principal); Z87.891 Personal history of nicotine dependence
CPT/HCPCS: 71271

== ENCOUNTER 2024-07-21 16:11 | Outpatient (CLI) | payer BC, SELFPAY ==
--- NOTE | 2024-07-21 16:15 | XR_ITS ---
FINAL REPORT CLINICAL HISTORY: LEFT LOWER BACK PAIN COMPARISON: 11/06/2019 FINDINGS: 3 views lumbosacral spine were obtained. No fracture is identified. Moderate diffuse degenerative disc disease and spondylosis. There is facet arthropathy. Probable canal stenosis and neuroforaminal narrowing is noted at multiple levels. Alignment is normal. IMPRESSION: Significant degenerative change with suspected underlying canal stenosis and neuroforaminal narrowing. MRI correlation may be considered. No fracture. Reviewed, Interpreted and Dictated by Madelyn Amaya MD Transcribed by Carolina Gay Authenticated and [facility]
== END 2024-07-21 23:59 | disposition home or self-care (01) ==
LOC: RAD 16:12
PROVIDERS: PCP Family Medicine; Visit Provider Physician Assistant
DX: M54.16 Radiculopathy, lumbar region (principal)
CPT/HCPCS: 72100

== ENCOUNTER 2024-07-27 14:15 | Outpatient (CLI) | payer BC, SELFPAY ==
--- NOTE | 2024-07-27 14:18 | MR_ITS ---
FINAL REPORT CLINICAL HISTORY: LBP COMPARISON: None FINDINGS: Multiplanar MR imaging of the lumbar spine was performed without contrast. On the sagittal T2-weighted images, there is abnormal decreased signal at the L2-3 through L5-S1 disc levels. The vertebrae are of normal height. The vertebral alignment is normal. T12-L1: There is no significant canal stenosis or neural foraminal narrowing. L1-2: There is no significant canal stenosis or neural foraminal narrowing. L2-3: Mild disc bulge. Small posterolateral disc protrusions. Mild bilateral neural foraminal narrowing. L3-4: Moderate diffuse disc bulge. Endplate hypertrophy. Moderate bilateral neural foraminal narrowing. Moderate bilateral facet hypertrophy. L4-5: Moderate diffuse disc bulge. Endplate hypertrophy. Moderate bilateral neural foraminal narrowing. L5-S1: Right posterolateral disc protrusion. Moderate right neural foraminal narrowing. IMPRESSION: Diffuse disc bulges with neural foraminal compromise bilaterally at L3-4 and L4-5 and on the right at L5-S1. Reviewed, Interpreted and Dictated by Elliot Morales MD Transcribed by Carolina Gay Authenticated and [facility]
== END 2024-07-27 23:59 | disposition home or self-care (01) ==
PROVIDERS: PCP Family Medicine; Visit Provider Physician Assistant
DX: M54.16 Radiculopathy, lumbar region (principal)
CPT/HCPCS: 72148

== ENCOUNTER 2024-07-31 13:58 | Outpatient (POV) | payer BC, SELFPAY ==
[2024-07-31 14:17] VITALS: BP 168/79; PULSE 81; RESP 16; O2SAT 96; BMI 36.5
--- NOTE | 2024-07-31 14:44 | EXP.PAIN.OV ---
HPI Data of Consult Patient: new to practice Consult date: 07/31/24 Requesting Physician: Brittany Cooper APRN Primary Care Provider: Arvind Caputo MD Consult Narrative Reason for consult: Low back pain, left-sided History of present illness: Mr. Sullivan is a 54 year old male who presents today as a new patient. He is a referral from [facility]. Today he rates his pain a 10 out of 10. Patient states his pain is all in his low back along the left side and that does go into his buttocks area as well as occasional into his upper thigh and quad area. He states the pain is constant and describes it as an aching, throbbing sensation with sharp pains and burning sensation. He states that anything seems to aggravate it especially prolonged sitting. He states he has to constantly change positions or lay back due to the worsening symptoms. He has tried oral medications, heat and ice, topicals, at home stretching exercise. Patient is currently prescribed methocarbamol, ibuprofen, tramadol and gabapentin however states that he really has not noticed significant improvement. Patient has had back surgery in 2019 but denies any injection therapy. Patient has recently been given oral steroids however does not state he noticed a big improvement. His Tyrone has been reviewed and is appropriate. CC: Brittany Cooper APRN [facility] Disclaimer: The information contained in this section may have been updated after the patient was seen, as this information can be updated by other users. 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 Biopsy was recommended. Should further resection be necessary, we will let him know. Surgical History History of knee surgery History of back surgery Family History Other Heart attack Social History Smoking Status: Former smoker second hand exposure: No alcohol intake: current alcohol intake frequency: holidays/special occasions only substance use type: denies use current occupational status: other Travel in the last 8 weeks: None household members: spouse housing: house current occupation: [employer] current occupational exposures/hazards: No caffeine: Yes Review of Systems Review of Systems Review of systems:: pertinent systems reviewed and negative unless documented below Review of systems (narrative): Review of Systems: General: No recent weight changes, no fever, no sleep disturbances Respiratory: No cough, no shortness of air, no recurring pulmonary infections Cardiovascular/peripheral vascular: No chest pain, no palpitations, no edema, no shortness of breath Gastrointestinal: No new onset incontinence, normal bowel movements reported Genitourinary: No new onset incontinence Musculoskeletal: Low back, left buttocks pain Psychiatric: [Normal mood/affect] Neurological: [Denies weakness in extremities], [denies balance issues] Meds Home Medications and Allergies Home Medications ?Medication ?Instructions ?Recorded ?Confirmed ?Type bupropion HCl 300 mg 24 hr tablet, 300 mg PO DAILY 09/03/22 07/31/24 History extended release omeprazole 40 mg capsule,delayed 40 mg PO DAILY 09/03/22 07/31/24 History release New Prescriptions to Start Prescriptions: Allergies Allergy/AdvReac Type Severity Reaction Status Date / Time No Known Allergies Allergy Verified 02/05/24 09:14 Objective Vital signs: Pulse Resp BP Pulse Ox O2 Del Method 81 16 168/79 H 96 Room Air 07/31/24 14:17 07/31/24 14:17 07/31/24 14:17 07/31/24 14:17 07/31/24 14:17 Narrative: Physical Exam: General: Alert and oriented x3, no acute distress, pleasant and cooperative Lungs: Respirations even and unlabored, symmetrical chest expansion Eyes: PERRL Musculoskeletal: Flexion and extension of lumbar [spine] somewhat guarded secondary to pain, [antalgic gait noted] point tenderness along left SI with positive left Brooks's, Ashu's, Gaenslen's, compression and distraction exam Neurological: Speech clear, no gross sensory deficit Additional findings Additional findings: FINDINGS: Multiplanar MR imaging of the lumbar spine was performed without contrast. On the sagittal T2-weighted images, there is abnormal decreased signal at the L2-3 through L5-S1 disc levels. The vertebrae are of normal height. The vertebral alignment is normal. T12-L1: There is no significant canal stenosis or neural foraminal narrowing. L1-2: There is no significant canal stenosis or neural foraminal narrowing. L2-3: Mild disc bulge. Small posterolateral disc protrusions. Mild bilateral neural foraminal narrowing. L3-4: Moderate diffuse disc bulge. Endplate hypertrophy. Moderate bilateral neural foraminal narrowing. Moderate bilateral facet hypertrophy. L4-5: Moderate diffuse disc bulge. Endplate hypertrophy. Moderate bilateral neural foraminal narrowing. L5-S1: Right posterolateral disc protrusion. Moderate right neural foraminal narrowing. IMPRESSION: Diffuse disc bulges with neural foraminal compromise bilaterally at L3-4 and L4-5 and on the right at L5-S1. Reviewed, Interpreted and Dictated by Elliot Morales MD Transcribed by Carolina Gay Authenticated and . [facility] Assessment and Plan *Assessment and plan (1) Degenerative disc disease, lumbar: Status: Acute Category: Medical Code(s): M51.369 - Other intervertebral disc degeneration, lumbar region without mention of lumbar back pain or lower extremity pain (2) Sacroiliitis: Status: Acute Category: Medical Code(s): M46.1 - Sacroiliitis, not elsewhere classified Plan Patient is experiencing severe pain in his low back and left buttocks area that does have some pains in his upper thigh. The pain is affecting his ability perform activities of daily living such as cooking and cleaning. Patient has tried and failed conservative therapy including oral medication, heat and ice, topicals, at home stretching exercise. I will order the patient a compounded cream and send in a 2-week dose of baclofen 10 mg 3 times daily as needed. Patient was discussed that I do believe he would benefit from a left SI injection. Risk and benefits were discussed with the patient and he would like to proceed forward with this plan of care. Patient will be scheduled for a left SI injection under fluoroscopy. Patient has been instructed to contact the clinic with any concerns before the next appointment. Dr. West has reviewed this note and agrees with this plan of care. This note was dictated using voice recognition software and make contain errors or omissions. All injections are used with Lidocaine, Bupivacaine and Depo Medrol. Occasionally urine drug screen is needed to verify patient's compliance with our office pain contract. This is ordered based off specific treatments related to chronic pain with the potential to abuse certain medications.
== END 2024-07-31 23:59 | disposition home or self-care (01) ==
PROVIDERS: PCP Family Medicine; Visit Provider Nurse Practitioner Family
DX: M51.362 Other intervertebral disc degeneration, lumbar region with discogenic back pain and lower extremity pain (principal); M46.1 Sacroiliitis, not elsewhere classified; Z73.89 Other problems related to life management difficulty
CPT/HCPCS: 99202; G0463

== ENCOUNTER 2024-08-04 11:20 | Day surgery (SDC) | payer BC, SELFPAY ==
[2024-08-04] MEDS: LIDOCAINE 1% 5ML PF VIAL 5 ML (11:48)
[2024-08-04] MEDS: BUPIVACAINE 0.25% 10ML INJ 25 MG IJ (11:48)
[2024-08-04] MEDS: methylPREDNISolone ACETATE 80MG/ML VIAL 80 MG (11:48)
[2024-08-04 11:49] VITALS: BP 160/98; PULSE 82; RESP 18; TEMP 36.3; O2SAT 95; BMI 48.7
[2024-08-04 11:50] VITALS: BP 148/91; PULSE 95; RESP 18; O2SAT 96; O2SAT 98
[2024-08-04 11:59] VITALS: BP 155/81; PULSE 79; RESP 16; TEMP 36.3; O2SAT 96
--- NOTE | 2024-08-04 12:36 | EXP.PAIN.PRO ---
Procedure Date: 08/04/24 Time: 11:55 Anesthesiologist:: Doroteo Kuo CRNA Complications:: None Pre-procedure Diagnosis:: Left sacroiliitis Post-procedure Diagnosis:: Same Indications for Procedure:: Patient very pleasant 54-year-old male who comes our clinic today for a left sacroiliac joint injection cortisone anesthetic. Patient describes low lumbar back pain off the midline to the left. Left posterior hip pain. Difficulty transitioning from sitting to standing. Difficulty with ambulation. He rates his pain 7/10. Procedure Details:: Procedure: Left sacroiliac injection under fluoroscopy Informed consent was obtained and the risk and benefits of the procedure were explained to the patient.~ The patient was taken to the procedure room and noninvasive monitors were placed including noninvasive blood pressure cuff and pulse oximeter.~ The patient was placed prone on the procedure table.~ The~ left hip was cleansed using Betadine as a cleansing solution.~ C-arm fluorosocpy was used to view the left SI joint.~ The skin and subcutaneous tissues were anesthetized using Lidocaine 1.5% and a 25-gauge needle.~ After this, a 22-gauge spinal needle was inserted under fluoroscopic guidance into the inferior aspect of the left SI joint.~ Omnipaque dye was injected and a good spread was seen throughout the joint.~ After this, approximately 5 mL of bupivacaine 0.25% and Depo-Medrol 40 mg was incrementally injected into the sacroiliac joint.~ The patient tolerated the procedure well with no complications.~ The patient was observed in the Pain Clinic for a period of 30-45 minutes, then discharged home neurologically intact.~ Plan and Disposition:: Patient was discharged without incident.
== END 2024-08-04 11:59 | disposition home or self-care (01) ==
LOC: SC.PAINP 11:21
PROVIDERS: PCP Family Medicine; Visit Provider Nurse Anesthetist, Certified Registered
DX: M46.1 Sacroiliitis, not elsewhere classified (principal)
CPT/HCPCS: 27096; G0260; J1010

== ENCOUNTER 2024-08-12 09:18 | Outpatient (POV) | payer BC, SELFPAY ==
--- NOTE | 2024-08-12 09:41 | A.OFFVIS_ITS ---
[facility] Disclaimer: The information contained in this section may have been updated after the patient was seen, as this information can be updated by other users. 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 Biopsy was recommended. Should further resection be necessary, we will let him know. Surgical History History of knee surgery History of back surgery Family History Other Heart attack Social History (Updated 08/04/24 @ 11:49 by Shirley Lawrence RN) Smoking Status: Former smoker second hand exposure: No alcohol intake: current alcohol intake frequency: holidays/special occasions only substance use type: denies use current occupational status: other Travel in the last 8 weeks: None household members: spouse housing: house current occupation: [employer] current occupational exposures/hazards: No caffeine: Yes PM Subjective & Objective Subjective Subjective:: Patient is a pleasant 54-year-old male who presents today for follow-up of left SI injection on 08/04/2024. Today he rates his pain a 3 out of 10. He denies any new trauma or injury. He does state that he has had approximately 85-90 percent improvement. He states that he is still having some pain however it is nothing like what he had prior and that it is very much manageable. Patient does make mention that last night he was twisting his upper back to reach down and tie his shoes and did have significant pain but does state that it was different from what the prior pain had been. His Tyrone has been reviewed and is appropriate. Review of Systems: General: No recent weight changes, no fever, no sleep disturbances Respiratory: No cough, no shortness of air, no recurring pulmonary infections Cardiovascular/peripheral vascular: No chest pain, no palpitations, no edema, no shortness of breath Gastrointestinal: No new onset incontinence, normal bowel movements reported Genitourinary: No new onset incontinence Musculoskeletal: Low back pain Psychiatric: [Normal mood/affect] Neurological: [Denies weakness in extremities], [denies balance issues] Pain at rest (0-10 scale): 3 Objective Objective:: Physical Exam: General: Alert and oriented x3, no acute distress, pleasant and cooperative Lungs: Respirations even and unlabored, symmetrical chest expansion Eyes: PERRL Musculoskeletal: Flexion and extension of lumbar [spine] somewhat guarded secondary to pain, [antalgic gait noted] Neurological: Speech clear, no gross sensory deficit Has patient had previous pain injection?: Yes Percent improvement in pain since last injection: 85% to 90 Conservative treatment options previously tried: Home exercise plan Length of treatment: Longer than 12 weeks Meds Home Medications and Allergies Home Medications ?Medication ?Instructions ?Recorded ?Confirmed ?Type bupropion HCl 300 mg 24 hr tablet, 300 mg PO DAILY 09/03/22 08/12/24 History extended release omeprazole 40 mg capsule,delayed 40 mg PO DAILY 09/03/22 08/12/24 History release baclofen 10 mg tablet 10 mg PO TID #42 tabs 07/31/24 08/12/24 Rx New Prescriptions to Start Prescriptions: Allergies Allergy/AdvReac Type Severity Reaction Status Date / Time No Known Allergies Allergy Verified 08/04/24 11:53 Assessment and Plan *Assessment and plan (1) Sacroiliitis: Status: Acute Category: Medical Code(s): M46.1 - Sacroiliitis, not elsewhere classified (2) Degenerative disc disease, lumbar: Status: Acute Category: Medical Code(s): M51.369 - Other intervertebral disc degeneration, lumbar region without mention of lumbar back pain or lower extremity pain (3) Lumbar facet arthropathy: Status: Acute Category: Medical Code(s): M47.816 - Spondylosis without myelopathy or radiculopathy, lumbar region Plan Patient has had significant improvement following his SI injections and does not require any additional injection therapy at this time. Patient was discussed that he does have symptoms consistent with axial pain and would most likely benefit from lumbar medial branch blocks in the future. I did review over the risk and benefits and specifics related to these injections. We will follow-up with him at future appointments regarding this. Patient will return to clinic in 6 weeks for reevaluation of symptoms and plan of care. Patient has been instructed to contact the clinic with any concerns before the next appointment. Dr. West has reviewed this note and agrees with this plan of care. This note was dictated using voice recognition software and make contain errors or omissions. All injections are used with Lidocaine, Bupivacaine and Depo Medrol. Occasionally urine drug screen is needed to verify patient's compliance with our office pain contract. This is ordered based off specific treatments related to chronic pain with the potential to abuse certain medications.
[2024-08-12 09:49] VITALS: BP 153/93; PULSE 75; RESP 14; O2SAT 96; BMI 36.5
== END 2024-08-12 23:59 | disposition home or self-care (01) ==
LOC: SC.PAIN 09:19
PROVIDERS: PCP Family Medicine; Visit Provider Nurse Practitioner Family
DX: M46.1 Sacroiliitis, not elsewhere classified (principal); M51.369 Other intervertebral disc degeneration, lumbar region without mention of lumbar back pain or lower extremity pain; M47.816 Spondylosis without myelopathy or radiculopathy, lumbar region
CPT/HCPCS: 99212; G0463

== ENCOUNTER 2024-09-24 09:30 | Outpatient (POV) | payer BC, SELFPAY ==
--- NOTE | 2024-09-24 09:54 | A.OFFVIS_ITS ---
[facility] Disclaimer: The information contained in this section may have been updated after the patient was seen, as this information can be updated by other users. 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 Biopsy was recommended. Should further resection be necessary, we will let him know. Surgical History History of knee surgery History of back surgery Family History Other Heart attack Social History Smoking Status: Former smoker second hand exposure: No alcohol intake: current alcohol intake frequency: holidays/special occasions only substance use type: denies use current occupational status: other Travel in the last 8 weeks: None household members: spouse housing: house current occupation: [employer] current occupational exposures/hazards: No caffeine: Yes PM Subjective & Objective Subjective Subjective:: Patient is a pleasant 54-year-old male who presents today for 6-week follow-up. Today he rates his pain a 2 out of 10. He denies any new trauma or injury. He states he is still doing wonderful from his left SI injection from back in July. Patient states the pain has never returned like what it was and that he has continued to do normal activities. His Tyrone has been reviewed and is appropriate. Review of Systems: General: No recent weight changes, no fever, no sleep disturbances Respiratory: No cough, no shortness of air, no recurring pulmonary infections Cardiovascular/peripheral vascular: No chest pain, no palpitations, no edema, no shortness of breath Gastrointestinal: No new onset incontinence, normal bowel movements reported Genitourinary: No new onset incontinence Musculoskeletal: Low back pain Psychiatric: [Normal mood/affect] Neurological: [Denies weakness in extremities], [denies balance issues] Pain at rest (0-10 scale): 2 Objective Objective:: Physical Exam: General: Alert and oriented x3, no acute distress, pleasant and cooperative Lungs: Respirations even and unlabored, symmetrical chest expansion Eyes: PERRL Musculoskeletal: Flexion and extension of lumbar [spine] within normal limits Neurological: Speech clear, no gross sensory deficit Has patient had previous pain injection?: No Conservative treatment options previously tried: Home exercise plan Length of treatment: Longer than 12 weeks Meds Home Medications and Allergies Home Medications ?Medication ?Instructions ?Recorded ?Confirmed ?Type bupropion HCl 300 mg 24 hr tablet, 300 mg PO DAILY 09/03/22 08/12/24 History extended release omeprazole 40 mg capsule,delayed 40 mg PO DAILY 09/03/22 08/12/24 History release baclofen 10 mg tablet 10 mg PO TID #42 tabs 07/31/24 08/12/24 Rx New Prescriptions to Start Prescriptions: Allergies Allergy/AdvReac Type Severity Reaction Status Date / Time No Known Allergies Allergy Verified 08/04/24 11:53 Assessment and Plan *Assessment and plan (1) Sacroiliitis: Status: Acute Category: Medical Code(s): M46.1 - Sacroiliitis, not elsewhere classified Plan Patient has continued to have significant improvement and does not require any additional injection therapy at this time. Patient will return to clinic in 3 months for reevaluation of symptoms and plan of care. Patient has been instructed to contact the clinic with any concerns before the next appointment. Dr. West has reviewed this note and agrees with this plan of care. This note was dictated using voice recognition software and make contain errors or omissions. All injections are used with Lidocaine, Bupivacaine and Depo Medrol. Occasionally urine drug screen is needed to verify patient's compliance with our office pain contract. This is ordered based off specific treatments related to chronic pain with the potential to abuse certain medications.
[2024-09-24 10:52] VITALS: BP 133/79; PULSE 67; RESP 67; O2SAT 96; BMI 36.2
== END 2024-09-24 23:59 | disposition home or self-care (01) ==
LOC: SC.PAIN 09:31
PROVIDERS: PCP Family Medicine; Visit Provider Nurse Practitioner Family
DX: M46.1 Sacroiliitis, not elsewhere classified (principal); Z87.891 Personal history of nicotine dependence
CPT/HCPCS: 99212; G0463

== ENCOUNTER 2024-12-23 10:15 | Outpatient (POV) | payer BC, SELFPAY ==
--- OUTSIDE RECORDS SUMMARY | 2024-11-06 05:00 | XMS_ITS ---
Author Organization [facility] Address [address] [place] [id number] Care Team Providers Care Retail Service Technician Name Role Phone Arvind Caputo Primary Care Provider Allergies No Known Allergies Results Component Value Reference Range Notes CBC Fingerstick (in house) Reviewed date:11/06/2024 10:24:45 AM Interpretation: Performing Lab: Notes/Report: wbc 6.7 3.5 - 10 lym 30.8% 15 - 50 mid 7.1% 2 - 15 gran 62.1% 35 - 80 rbc 4.87 3.5 - 5.5 hgb 14.6 11.5 - 16.5 hct 44.6 35 - 55 mcv 91.6 75 - 100 mch 30.0 25 - 35 mchc 32.7 31 - 38 plat 266 100 - 400 REASON FOR VISIT sore throat, fatigue Medications Medication SIG (Take, Route, Frequency, Duration) Notes Start Date End Date Status Methocarbamol 1000 MG 1 tablet Orally th ree times a day as needed 07/17/2024 Active Zithromax Z-Jaylan 250 MG as directed Orall y once daily for 5 days 11/06/2024 Active Gabapentin 300 MG 1 capsule Orally Two times a day for 30 day(s) 07/22/2024 Active dexAMETHasone 4 MG 1 tablet Orally Two times a day for 5 day(s) 07/17/2024 Active Ibuprofen 800 MG 1 tablet with food o r milk as needed Orally every 8 hrs, prn with food 07/17/2024 Active traMADol HCl 50 MG 1 or 2 tablets as ne eded Orally every 6 hrs 08/03/2024 Active buPROPion HCl ER (XL) 450 MG 1 tab(s) or ally every 24 hours for 90 days Active Omeprazole 40 MG 1 cap(s) orally once a day for 90 days Active Vital Signs Blood pressure systolic 140 mm Hg 11/07/19 25 Blood pressure diastolic 90 mm Hg 025 Heart Rate 90 /min 11/06/2024 Height 74 in 11/06/2024 Weight 296 lbs 11/06/2024 BMI 38 kg/m2 11/06/2024 Encounters Encounter Location Date Provider Diagnosis [facility] [address] [facility] [address] [place] [id number] 11/06/2024 Arvind Caputo Acute maxillary sinusitis, recurrence not specified J01.00 and Non morbid obesity E66.9 Assessments Encounter Date Diagnosis (ICD Code) Assessment Notes Treatment Notes Treatment Clinical Notes Section Notes 11/06/2024 Acute maxillary sinusitis, recurrence not specified (ICD-10 - J01.00) 11/06/2024 Non morbid obesity (ICD-10 - E66.9) Will request PA for medication Plan Of Treatment Medication Medication Name Sig Start Date Stop Date Notes Zithromax Z-Jaylan 250 MG as directed Orall y once daily for 5 days 11/06/2024 Treatment Notes Assessment Notes Non morbid obesity Will request PA for medication Next Appt Details Follow Up: prn, Reason: Progress Notes * Alexis SULLIVANDOB:1970 ( 54 yo M)Acc No.[id number]:11/06/2024 Progress Notes Patient: Alexis SANTIAGO Provider: Elizabeth Caputo M.D. :1970 A ge:54 Y S ex:Male Date:11/06/2024 Address:[address] [place] [address] [address] [phone] Subjective: * Chief Complaints: * 1 . Sore throat, fatigue. * HPI: E NT/respiratory: 54 year old male presents with c/o cough P t complains of small amount of white sputum cough for 2 days. Associated with nasal congestion, sore throat. Pt states he just does not feel well. * ROS: D ERMATOLOGY: no R hakeem. n o H seferino. G ASTROENTEROLOGY: no N ausea. n o V omiting. U ROLOGY: no D ifficulty urinating. n o B lood in urine. * Medical History: C arpal Tunnel Syndrome, Hiatal Hernia, Esophageal Reflux, Depression, Lumbar Disc Disease, Lumbar Disc Herniation, Lumbar facet arthropathy, Colon polyps, 50 pack year smoking history, quit in 2018. * Surgical History: L T Knee 2005, RT Knee Tendon Repair 2013, Back - Herniated Disc 02/2020, colonoscopy 03/2021. * Hospitalization/Major Diagno stic Procedure: D enies Past Hospitalization. * Family History: F ather: alive. M other: alive. 1 sister(s) - healthy. 2 daughter(s) - healthy. .? * Social History: C URRENT TOBACCO USE: No . C affeine: yes, frequency: 2 pots of coffee a day and a couple of diet mt dews. Exercise: no. Marital Status: . Past smoking status: previous history, Pt stopped smoking Mar 2018, Pt was a 2 ppd smoker and started at age 16. Alcohol: No. Sexually active: yes. * Medications: T aking Omeprazole 40 MG Capsule Delayed Release 1 cap(s) orally once a day , Taking buPROPion HCl ER (XL) 450 MG Tablet Extended Release 24 Hour 1 tab(s) orally every 24 hours , Taking dexAMETHasone 4 MG Tablet 1 tablet Orally Two times a day , Taking Ibuprofen 800 MG Tablet 1 tablet with food or milk as needed Orally every 8 hrs, prn with food , Taking Methocarbamol 1000 MG Tablet 1 tablet Orally three times a day as needed , Taking Gabapentin 300 MG Capsule 1 capsule Orally Two times a day , Taking traMADol HCl 50 MG Tablet 1 or 2 tablets as needed Orally every 6 hrs , Medication List reviewed and reconciled with the patient * Allergies: N .K.D.A. Objective: * Vitals: W t: 296, Temp: 98.0, BP: 140/90, HR: 90, Nurse: mattie, Ht: 74, BMI:38. * Examination: E NT/Respiratory: General Appearance: N AD. Eyes: P ERRLA, sclera clear. Ears: a uditory canals normal bilaterally, TM's WNL. Sinuses : tender maxillary sinuses bilaterally. Heart : R RR, normal S1 S2. Lungs: c lear to auscultation bilaterally. Assessment: * Assessment: 1. A cute maxillary sinusitis, recurrence not specified - J01.00 (Primary) 2 .?Non morbid obesity - E66.9 Plan: * Treatment: Value Reference Range w bc 6.7 3.5 - 10 * l ym 30.8% 15 - 50 * m id 7.1% 2 - 15 * g ran 62.1% 35 - 80 * r bc 4.87 3.5 - 5.5 * h gb 14.6 11.5 - 16.5 * h ct 44.6 35 - 55 * m cv 91.6 75 - 100 * m ch 30.0 25 - 35 * m chc 32.7 31 - 38 * p lat 266 100 - 400 * Coby Arana 11/06/2024 09:09:2 5 AM > Provider reviewed results while patient in office. 2.?Non morbid obesity? Notes: Will request PA for medication?? * Procedure Codes: 3 6416 CAPILLARY BLOOD DRAW, 82587 CBC WITH AUTO DIFF * Follow Up: p rn * Billing Information: * Visit Code: 35074 Office Visit, Est Pt., Level 3. * Procedure Codes: 13570 CAPILLARY BLOOD DRAW. 51721 CBC WITH AUTO DIFF. * Electronic signature of Jenny Caputo MD on 12/23/2024 at 10:19 AM EDT Sign off status: Pending * Provider: Elizabeth Caputo M.D. Date: 0 11/06/2024 Generated for Francia andrea/Kayode/eTransmitting on: 0 12/23/2024 10:19 AM EDT History and Physical Notes * HPI (History of Present Illness) Category Sub-Category Detail Notes Category Not es ENT/respiratory cough Pt complains of small amount of white sputum cough for 2 days. Associated with nasal congestion, sore throat. Pt states he just does not feel well Examination Category Sub-Category Detail Notes Category Not es ENT/Respiratory Sinuses : tender maxillary sinuses bilaterally Ears: auditory canals norm al bilaterally, TM's WNL Heart : RRR, normal S1 S2 Lungs: clear to auscultatio n bilaterally General Appearance: NAD Eyes: PERRLA, sclera clear
--- OUTSIDE RECORDS SUMMARY | 2024-12-23 10:19 | XMS_ITS | Data Portability ---
Author Organization [facility] Address [address] [place] [address] Assessment Encounter Date Assessment Date Assessment LastModified by Organization Details LastModified Time 12/21/2019 12/21/2019 Mr. Sullivan is a 47-year-old gentleman with a significant left L4-5 disc herniation with compression on the descending L5 nerve root. I believe he would respond favorably to a minimally invasive left L4-5 discectomy. I described the procedure in great detail. We discussed the risks and benefits of the operation. He would likely go home same day from the hospital. He is going to think about this and call us if he wishes to proceed. Not available 12/21/2019 14:45:04 03/17/2020 03/17/2020 Mr. Sullivan is doing well after a left L4-5 minimally invasive discectomy on February 16, 2020. We discussed increasing his activity at this time. He can lift up to 25 pounds for the next 6 weeks. He will stay off work another few weeks. He is self-employed and lays agatha. He'll be released from my care at this time, but understands he can call at any time with questions or concerns. Not available 03/17/2020 09:07:27 Plan of Treatment Reminders Order Date Submit Date Provider Last Modified By Organization Details Last Modified Time Details Appointments None record ed. Lab None record ed. Referral None record ed. Procedures None record ed. Surgeries None record ed. Imaging None record ed. Medication Orders None record ed. Patient TargetsNo targets recorded. Patient InstructionsNo instructions recorded. Reason for Referral None Reported. Results Created Date Observation Date Name Description Value Unit Range Abnormal Flag Note LastModifiedBy Organization Detail LastModifiedTime 02/18/20 20 02/16/2020 fluor oscop y (PROC ) No observ ation record ed. [email or web address] [address] [facility] , [place], [address], 02/26/2020 08:36:40 Result Notes None recorded. Procedures Surgical History Date Name Laterality Status Provider Name and Address Organization Details Recorded Time 02/16/20 LAMINOTOMY (HEMILAMINECTOMY) , DECOMPRESSION OF NERVE ROOTS, PARTIAL FACECTOTOMY, FORAMINOTOMY AND/OR DISC REMOVAL, LUMBAR (SURG) completed Carolina Mcdaniel [facility] 02/22/2020 16:04:22 Knee arthroscopy/surge ry completed [facility] 12/21/2019 13:47:49 Imaging Results None recorded. Procedure Notes None recorded. Medical Equipment None Reported. Allergies No known drug allergies Medications Name Sig Start Date Stop Date Status Note LastModified by Organization Details LastModified Time nabumetone 750 mg tablet active Not Available Not Available No t Available sulfamethoxazol e 800 mg-trimethoprim 160 mg tablet active Not Available Not Availabl e Not Available omeprazole 40 mg capsule,delayed release active Not Available Not Available Not Available triamcinolone acetonide 0.1 % topical cream active Not Available Not Availabl e Not Available hydrocodone 7.5 mg-acetaminophe n 325 mg tablet active Not Available Not Availa ble Not Available dexamethasone 4 mg tablet active Not Available Not Available No t Available gabapentin 300 mg capsule Take 1 capsule 3 times a day by oral route. active Not Available Not Available No t Available cyclobenzaprine 5 mg tablet active Not Available Not Available Not Available bupropion HCl XL 300 mg 24 hr tablet, extended release active Not Available Not Available Not Available bupropion HCl XL 150 mg 24 hr tablet, extended release active Not Available Not Available Not Available Vitals Date Recorded Body height Body mass index (BMI) Body weight Systolic blood pressure Diastolic blood pressure Provider Name and Address Organization Details Last Updated DateTime 12/21/2019 190.5 cm 38.6 kg/m2 284809.0 4 g 132 mm[Hg] 80 mm[Hg] [facility] 0 13:48:28 Date Recorded Body height Body mass index (BMI) Body weight Systolic blood pressure Diastolic blood pressure Provider Name and Address Organization Details Last Updated DateTime 03/17/2020 190.5 cm 38.6 kg/m2 710054.0 4 g 132 mm[Hg] 80 mm[Hg] Dari Graff [facility] 0 09:01:13 Social History None recorded. Functional Status None recorded. Mental Status None recorded. Family History Relationship Description Onset Age of this Age Resolved Age Notes LastModified by Organization Details LastModified Time Unspecified Relation Myocardial infarction [email or web address] Not available 12/06 13:47:33 Unspecified Relation Cerebrovascu lar accident [email or web address] Not available 13:47:39 Medical History No medical history recorded. Past Encounters Encounter ID Performer Location Encounter Start Date Encounter Closed Date Diagnosis/Indication Diagnosis SNOMED-CT Code Diagnosis ICD10 Code Diagnosis Note [id number] DYASI YANG MD [facility] [address] [place] [address] 12/21/2019 13:02:20 12/21/2019 16:08:57 Lumbar radiculopathy 701322371 M54.16 [id number] DAYSI YANG MD SURGERY SCHEDULE [address] [place] [address] 02/23/2020 14:12:04 02/23/2020 15:35:18 [id number] DAYSI YANG MD [facility] [address] [place] [address] 03/17/2020 08:51:44 03/18/2020 12:53:12 Postoperative care 104105211 Z48.89 Health Concerns Section Related Observation LastModified by Organization Detai ls LastModified Time None Recorded Concern Status LastModified by Organization Details LastModified Time None Recorded Advance Directives Directive None Recorded Payers Insurance Date Sequence Insurance Name Policy Number Policy Nash Covered Member ID Nash Member ID Guarantor Name 06/01/2020 1 JORGE-LOGAN: [place] [id number] Saira Sullivan [id number] Alexis Gomezen Notes Date Note Type Note Provider Name and Address Organization Details Recorded Time 12/21/2019 text/html 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 This is been present for approximately 6 months. The pain is 9 out of 10 and described as sharp and aching. The pain is constant. He gets some relief with a heating pad and TENS unit. The pain is made worse with walking, standing wearing a tight belt or pants. He has trialed TENS unit, steroids and anti-inflammatories without much improvement. He presents today with an MRI of the lumbar spine performed at [facility] on December 02, 2019 DAYSI YANG MD [address] [place], [address], [facility] 12/21/2019 14:45:15 03/17/2020 text/html Mr. Sullivan is do ing very well after left L4-5 minimally invasive discectomy performed on February 16, 2020. He denies any significant pain at this time. DAYSI YANG MD [address] [place], [address], [facility] 03/17/2020 09:07:39
--- OUTSIDE RECORDS SUMMARY | 2024-12-23 10:19 | XMS_ITS | Patient Health Record ---
[facility] Address [address] [place] [id number] Care Team Providers Care Gum Machine Filler Name Role Phone Arvind Caputo Primary Care Provider [phone] Samantha Romero Unavailable [phone] Allergies No Known Allergies Results Component Value [...] - 38 plat 266 100 - 400 CT Scan : Spine, Cervical, w ithout contrast Reviewed date:01/30/2024 09:13:35 AM Interpretation:performed in ER Performing Lab: Notes/Report: performed in ER X ray : Spine, lumbosacral Reviewed date:07/22/2024 12:35:25 PM Interpretation: Performing Lab: Notes/Report: MRI : Spine, Lumbosacral, wi thout contrast Reviewed date:07/30/2024 02:54:58 PM Interpretation:Abnormal Performing Lab: Notes/Report: Abnormal CT Scan : Chest, low dose Reviewed date:02/14/2024 09:37:28 AM Interpretation:bilateral pulmonary nodules, recommend annual f/u Performing Lab: Notes/Report: bilateral pulmonary nodules, recommend annual f/u Reason For Referral Diagnosis 1 Lumbar back pain wit h radiculopathy affecting left lower extremity (M54.16) Diagnosis 2 Abnormal x-ray (R93. 89) Referral Organization [facility] Referring Provider First Name Samantha Referring Provider Last Name Heather Referring Provider Speciality Physician Lens Fabricating Machine Tender Referred Provider Specialty Pain Managem ent General Notes Sharlene Vasquez 07/30/19 3:00:57 PM > faxed to [facility]; appointment confirmed Referral Priority Routine Medications Medication SIG (Take, Route, Frequency, Duration) Notes Start Date End Date Status Omeprazole 40 mg TAKE ONE CAPSULE BY MOUTH ONCE A DAY for 90 Active traMADol HCl 50 MG 1 or 2 tablets as ne eded Orally every 6 hrs 08/03/2024 Active buPROPion HCl ER (XL) 150 mg TAKE ONE TA BLET BY MOUTH ONCE A DAY WITH 300 MG for 90 Active Methocarbamol 1000 MG 1 tablet Orally th [...] 8 hrs, prn with food 07/17/2024 Active Problems Problem Type SNOMED Code ICD Code Onset Dates Problem Status W/U Status Risk Notes Problem 521175599 Lumbar facet arthropathy (M47.816) Active confirmed Problem 589907087 Lumbago with sciatica, left side (M54.42) Active confirmed Problem 952978357128924237 Personal hist ory of nicotine dependence (Z87.891) Active confirmed Problem 792473018 Genital warts (A63.0) Active confirmed Problem 60356964 Lumbar degenerative disc disease (M51.36) Active confirmed Problem 62693925 Depressive disorder (F32.9) Active confirmed Problem 882810737 Gastroesophageal reflux disease, esophagitis presence not specified (K21.9) Active confirmed Problem 77170300 Cigarette nicoti ne dependence without complication (F17.210) Active confirmed Problem 167473404 Acute left-sided low back pain with left-sided sciatica (M54.42) Active confirmed Problem 433368028 Lumbar disc herniation (M51.26) Active confirmed Problem 59141181 Rhinitis, unspecified type (J31.0) Active confirmed Problem 059371558 Tingling of righ t upper extremity (R20.2) Active confirmed Problem 484130001 Tingling of left upper extremity (R20.2) Active confirmed Problem 448974888 Non morbid obesi ty (E66.9) Active confirmed Problem 091219552 Lumbar back pain with radiculopathy affecting left lower extremity (M54.16) Active confirmed Problem 098499809 Abnormal x-ray (R93.89) Active confirmed Vital Signs Heart Rate 90 /min 11/06/2024 Blood pressure diastolic 90 mm Hg 11/06/2024 Height 74 in 11/06/2024 Blood pressure systolic 140 mm Hg 11/06/2024 Weight 296 lbs 11/06/2024 BMI 38 kg/m2 11/06/2024 Encounters Encounter Location Date Provider Diagnosis [facility] [address] [facility] [address] [place], [place] [id number] 01/29/2024 Arvind [place] Acute pain of left k nee M25.562 [facility] [address] [facility] [address] [facility] [address] [place], [place] [id number] 07/17/2024 Samantha Crowdy Lumbar back pain wit h radiculopathy affecting left lower extremity M54.16 [facility] [address] [place], [place] [id number] 11/06/2024 Arvind [place] Acute maxillary sinu sitis, recurrence not specified J01.00 and Non morbid obesity E66.9 [facility] [address] [facility] [address] [place], [place] [id number] 01/16/2024 Arvind [place] Screening for lung c ancer Z12.2 and Personal history of nicotine dependence Z87.891 [facility] [address] [facility] [address] [place], [place] [id number] 02/14/2024 Arvind [place] [facility] [address] [facility] [address] [place], [place] [id number] 06/02/2024 Arvind [place] Gastroesophageal ref lux disease, esophagitis presence not specified K21.9 and Depressive disorder F32.9 [facility] [address] [place], [place] [id number] 07/20/2024 Samantha Crowdy Lumbar back pain wit h radiculopathy affecting left lower extremity M54.16 [facility] [address] [place], [place] [id number] 07/22/2024 Samantha Crowdy Lumbar back pain wit h radiculopathy affecting left lower extremity M54.16 and Abnormal x-ray R93.89 [facility] [address] [place], [place] [id number] 07/22/2024 Arvind [place] [facility] [address] [place], [place] [id number] 07/24/2024 Arvind [place] [facility] [address] [place], [place] [id number] 07/30/2024 Samantha Crowdy Lumbar back pain wit h radiculopathy affecting left lower extremity M54.16 and Abnormal x-ray R93.89 [facility] [address] [place], [place] [id number] 08/03/2024 Arvind [place] [facility] [address] [place], [place] [id number] 11/12/2024 Arvind [place] [facility] [address] [facility] [address] [place], [place] [id number] 12/21/2024 Arvind [place] Assessments Encounter Date Diagnosis (ICD Code) Assessment Notes Treatment Notes Treatment Clinical Notes Section Notes 01/16/2024 Personal history of nicotine dependence (ICD-10 - Z87.891) 01/16/2024 Screening for lung cancer (ICD-10 - Z12.2) 01/29/2024 Acute pain of left knee (ICD-10 - M25.562) Rest, ice, compression and elevation. Keep appointment with Ortho next week 06/02/2024 Gastroesophageal reflux disease, esophagitis presence not specified (ICD-10 - K21.9) 07/17/2024 Lumbar back pain with radiculopathy affecting left lower extremity (ICD-10 - M54.16) 07/20/2024 Lumbar back pain with radiculopathy affecting left lower extremity (ICD-10 - M54.16) 07/22/2024 Lumbar back pain with radiculopathy affecting left lower extremity (ICD-10 - M54.16) 07/30/2024 Lumbar back pain with radiculopathy affecting left lower extremity (ICD-10 - M54.16) 07/30/2024 Abnormal x-ray (ICD-10 - R93.89) 11/06/2024 Acute maxillary sinusitis, recurrence not specified (ICD-10 - J01.00) 11/06/2024 Non morbid obesity (ICD-10 - E66.9) Will request PA for medication 07/22/2024 Abnormal x-ray (ICD-10 - R93.89) 06/02/2024 Depressive disorder (ICD-10 - F32.9) Plan Of Treatment No Information Insurance Providers Payer Name Payer Address Payer Phone Subscriber Number Group Number Insured Name Patient Relationship to Insured Coverage Start Date Coverage End Date [employer]ORAH [facility] [address] [place] [address] [id number] Alexis Sullivan Self - patient is the insured Medical (General) History Medical History History ICD Code Carpal Tunnel Syndrome Hiatal Hernia Esophageal Reflux Depression Lumbar Disc Disease Lumbar Disc Herniation Lumbar facet arthropathy Colon polyps 50 pack year smoking history, quit in Surgical History Surgery Date(Month/Year) LT Knee 2006 RT Knee Tendon Repair 2014 Back - Herniated Disc 02/2020 colonoscopy 03/2021
--- NOTE | 2024-12-23 10:35 | EXP.PAIN.SOA ---
[facility] Disclaimer: The information contained in this section may have been updated after the patient was seen, as this information can be updated by other users. Medical History (Updated 10/02/24 @ 15:49 by Valerie Cota APRN) Sinusitis History of COVID-19 Sinus headache Anxiety and depression Hemorrhoid History of gastroesophageal reflux (GERD) Allergies Neoplasm of ear Surgical History History of knee surgery History of back surgery Family History Other Heart attack Social History Smoking Status: Former smoker second hand exposure: No alcohol intake: current alcohol intake frequency: holidays/special occasions only substance use type: denies use current occupational status: other Travel in the last 8 weeks?: None household members: spouse housing: house current occupation: [employer] current occupational exposures/hazards: No caffeine: Yes PM Subjective & Objective Subjective Subjective:: Patient is a pleasant 54-year-old male who presents today for 3-month follow-up. He rates his pain today a 0 out of 10. He states he is continue to do well from his SI injection along the left side in July. He denies any new falls or injuries. Patient is prescribed compounded cream from our office and would like additional refills. His Tyrone has been reviewed and is appropriate. Review of Systems: General: No recent weight changes, no fever, no sleep disturbances Respiratory: No cough, no shortness of air, no recurring pulmonary infections Cardiovascular/peripheral vascular: No chest pain, no palpitations, no edema, no shortness of breath Gastrointestinal: No new onset incontinence, normal bowel movements reported Genitourinary: No new onset incontinence Musculoskeletal: Low back pain Psychiatric: [Normal mood/affect] Neurological: [Denies weakness in extremities], [denies balance issues] Pain at rest (0-10 scale): 0 Objective Objective:: Physical Exam: General: Alert and oriented x3, no acute distress, pleasant and cooperative Lungs: Respirations even and unlabored, symmetrical chest expansion Eyes: PERRL Musculoskeletal: Flexion and extension of lumbar within normal limits Neurological: Speech clear, no gross sensory deficit Has patient had previous pain injection?: No Conservative treatment options previously tried: Home exercise plan Length of treatment: Longer than 12 weeks Meds Home Medications and Allergies Home Medications ?Medication ?Instructions ?Recorded ?Confirmed ?Type bupropion HCl 300 mg 24 hr tablet, 300 mg PO DAILY 09/03/22 10/02/24 History extended release omeprazole 40 mg capsule,delayed 40 mg PO DAILY 09/03/22 10/02/24 History release amoxicillin 875 mg-potassium 1 tab PO BID 10 days #20 tabs 10/02/24 10/02/24 Rx clavulanate 125 mg tablet benzonatate 100 mg capsule 100 mg PO TID PRN cough #30 caps 10/02/24 10/02/24 Rx methylprednisolone 4 mg tablets in See Rx Instructions PO PER PKG DIR 10/02/24 10/02/24 Rx a dose pack (Medrol (Jaylan)) #21 tabs New Prescriptions to Start Prescriptions: Allergies Allergy/AdvReac Type Severity Reaction Status Date / Time No Known Allergies Allergy Verified 10/02/24 15:11 Assessment and Plan *Assessment and plan (1) Sacroiliitis: Status: Acute Category: Medical Code(s): M46.1 - Sacroiliitis, not elsewhere classified Plan Patient has continued to do well and does not require any additional injection therapy at this time. We did discuss the possibility of future knee injections as he has chronic pain in this area. We will continue to monitor this. I will refill the patient's compounded cream. Patient will return to clinic in 6 months for reevaluation of symptoms and plan of care. Patient has been instructed to contact the clinic with any concerns before the next appointment. Dr. West has reviewed this note and agrees with this plan of care. This note was dictated using voice recognition software and make contain errors or omissions. All injections are used with Lidocaine, Bupivacaine and dexamethasone. Occasionally urine drug screen is needed to verify patient's compliance with our office pain contract. This is ordered based off specific treatments related to chronic pain with the potential to abuse certain medications.
[2024-12-23 11:02] VITALS: BP 139/62; PULSE 70; RESP 18; O2SAT 96; BMI 37.5
== END 2024-12-23 23:59 | disposition home or self-care (01) ==
LOC: SC.PAIN 10:16
PROVIDERS: PCP Family Medicine; Visit Provider Nurse Practitioner Family
DX: M46.1 Sacroiliitis, not elsewhere classified (principal); Z98.890 Other specified postprocedural states
CPT/HCPCS: 99212; G0463

== ENCOUNTER 2025-06-18 12:29 | Day surgery (SDC) | payer BC, SELFPAY ==
[2025-06-18 12:49] VITALS: BP 156/81; PULSE 91; RESP 18; O2SAT 95; BMI 38.5
[2025-06-18] MEDS: BUPIVACAINE 0.25% 10ML INJ 25 MG IJ (13:24)
[2025-06-18 13:25] VITALS: BP 135/96; PULSE 91; RESP 18; O2SAT 94
[2025-06-18] MEDS: LIDOCAINE 1% 5ML PF VIAL 5 ML (13:25)
[2025-06-18] MEDS: DEXAMETHASONE 10MG/ML 1ML VIAL 10 MG (13:25)
[2025-06-18 13:28] VITALS: BP 159/86; PULSE 87; RESP 16; O2SAT 96
[2025-06-18 13:36] VITALS: BP 121/77; PULSE 73; RESP 18; O2SAT 94
--- NOTE | 2025-06-18 13:43 | EXP.HP ---
History of Present Illness *Admission Date: 06/18/25 *Reason for visit:: Sacroiliitis *History of present illness: Right SI joint injection [facility] Disclaimer: The information contained in this section may have been updated after the patient was seen, as this information can be updated by other users. Medical History Sinusitis History of COVID-19 Sinus headache Anxiety and depression Hemorrhoid History of gastroesophageal reflux (GERD) Allergies Neoplasm of ear This is an area of sun exposure that continues to crust leading me to think that this could be either either actinic keratotic changes or possibly early neoplastic change. Biopsy was recommended. Should further resection be necessary, we will let him know. Surgical History History of knee surgery History of back surgery Family History Other Heart attack Social History Smoking Status: Former smoker second hand exposure: No alcohol intake: current alcohol intake frequency: holidays/special occasions only substance use type: denies use current occupational status: employed Travel in the last 8 weeks?: None household members: spouse housing: house current occupation: [employer] current occupational exposures/hazards: No caffeine: Yes Have you lived/traveled outside [place] in past 30 days?: No Contact w/someone who lives/traveled outside [place] past 30 days?: No Exposure to someone with infectious disease in past 14 days?: No Do you have a fever (greater than 100.4 F or 38 C)?: No Have you tested positive for COVID-19?: No Exposed to someone with COVID-19 in past 14 days?: No Do you have a sore throat?: No Do you have a cough?: No Do you have any weakness?: No Do you have any diarrhea?: No Are you experiencing any unusual bleeding?: No Do you have any muscle aches/pain?: No Do you have any abdominal pain?: No Are you experiencing loss of taste or smell?: No Other Medical History Have you received the Flu Vaccine for this season: No Have you received the Pneumonia Vaccine: No Review of Systems Review of Systems Review of systems:: pertinent systems reviewed and negative unless documented below Meds Home Medications and Allergies Home Medications ?Medication ?Instructions ?Recorded ?Confirmed ?Type bupropion HCl 300 mg 24 hr tablet, 300 mg PO DAILY 09/03/22 06/18/25 History extended release omeprazole 40 mg capsule,delayed 40 mg PO DAILY 09/03/22 06/18/25 History release benzonatate 100 mg capsule 100 mg PO TID PRN cough #30 caps 10/02/24 06/18/25 Rx baclofen 10 mg tablet 10 mg PO TID #90 tabs 05/21/25 06/18/25 Rx New Prescriptions to Start Prescriptions: Allergies Allergy/AdvReac Type Severity Reaction Status Date / Time No Known Allergies Allergy Verified 06/18/25 12:49 Exam Data for Last 24 hours Vital signs and Labs for Last 24 Hours: Pulse Resp BP Pulse Ox O2 Del Method 73 18 121/77 94 L Room Air 06/18/25 13:36 06/18/25 13:36 06/18/25 13:36 06/18/25 13:36 06/18/25 13:36 I & O for Last 24 hours: Intake & Output 06/16/25 06/17/25 06/18/25 06/19/25 11:59 11:59 11:59 11:59 Weight 300 lb *Routine HEENT Exam Head: Present normocephalic Eye: Present EOMI ENT: Present mucous membranes moist *Routine Respiratory Exam Respiratory: Present CTA bilaterally *Routine Cardiovascular Exam Cardiovascular: Present RRR, Normal S1 and Normal S2 *Routine Abdominal Exam Abdominal: Present soft *Routine Rectal Exam Rectal:: deferred *Routine Genitalia Exam Genitalia:: deferred Assessment and Plan *Assessment and plan (1) Sacroiliitis: Status: Acute Category: Medical Code(s): M46.1 - Sacroiliitis, not elsewhere classified Plan Right SI joint injection
--- NOTE | 2025-06-18 13:44 | EXP.PAIN.PRO ---
Procedure Date: 06/18/25 Time: 13:45 Anesthesiologist:: Brett West MD Complications:: None Pre-procedure Diagnosis:: Sacroiliitis Post-procedure Diagnosis:: same Indications for Procedure:: This patient is a pleasant 55-year-old male who we are treating for right-sided sacroiliac. He does get 6 months relief from these therapeutic right SI joint injections. He is tender over his right SI joint. His positive Brooks's test on the right side. He has a positive Josselin since the right side. His positive SI joint compression test on the right side. He has positive distraction test. He presents for right SI joint injection under fluoroscopy today. Procedure Details:: Right SI joint injection under fluoroscopy Informed consent was obtained and the risks and benefits of the procedure was going to the patient. Patient was taken to the procedure room. Patient was placed prone on the procedure table. The right hip was prepped using ChloraPrep. The skin and subcutaneous tissues were anesthetized using lidocaine. I placed a 22-gauge spinal needle into the inferior aspect of the right SI joint. Needle placement was confirmed with dye. After this we injected 5 mL bupivacaine 0.25% and dexamethasone 10 mg into the right SI joint. The patient tolerated the procedure well with no complication. Plan and Disposition:: Will follow-up with this patient in 2 weeks. Will evaluate efficacy of this injection.
== END 2025-06-18 13:28 | disposition home or self-care (01) ==
LOC: SC.PAINP 12:30
PROVIDERS: PCP Family Medicine; Visit Provider Anesthesiology
DX: M46.1 Sacroiliitis, not elsewhere classified (principal); K21.9 Gastro-esophageal reflux disease without esophagitis; F41.9 Anxiety disorder, unspecified; F32.A Depression, unspecified; Z87.891 Personal history of nicotine dependence; Z79.899 Other long term (current) drug therapy
CPT/HCPCS: G0260; J0665; J1100; J2003